=== PATIENT | female | born 1955 | race Caucasian/White ===

== ENCOUNTER 2018-10-02 10:28 | Emergency (ER) | payer OTHER ==
[2018-10-02] MEDS ORDERED: MORPHINE 2 MG/ML SYR ONE (12:54)
[2018-10-02] MEDS ORDERED: ONDANSETRON 4 MG/2 ML VIAL ONE (12:55)
[2018-10-02] MEDS ORDERED: NA CHLORIDE 0.9% 500 ML ONE (12:55)
[2018-10-02 13:07] LABS: Absolute Lymphocytes (CBC) 2.4 K/uL (0.7-4.9); Absolute Monocytes 0.7 K/uL (0.1-1.3); Absolute Neutrophil 3.5 K/uL (1.8-8.0); Basophils % 0.6 % (0-1.3); Eosinophils % 1.2 % (0-4.4); Hematocrit 41.4 % (36.0-45.0); Lymphocytes % 35.6 % (15.3-44.8); Monocytes % 10.1 % (3.3-12.3); RBC Red Blood Cell Count 4.75 M/uL (3.86-4.86)
[2018-10-02 13:19] LABS: ALT/SGPT 31 U/L (12-78); AST/SGOT 17 U/L (15-37); Albumin 4.2 g/dL (3.4-5.0); Alkaline Phosphatase 93 U/L (45-117); BUN Blood Urea Nitrogen 13 mg/dL (7-18); Bicarbonate 27 mmol/L (21-32); Bilirubin Direct < 0.1 mg/dL (0-0.2); Bilirubin Total 0.3 mg/dL (0.2-1.0); Glucose Level 89 mg/dL (74-106); Lipase 156 U/L (73-393); Potassium 3.9 mmol/L (3.5-5.1); Protein, Total 7.9 g/dL (6.4-8.2); Sodium Level 141 mmol/L (136-145)
--- NOTE | 2018-10-02 14:12 | RAD REPORT ---
EXAM DESCRIPTION: CT - Abdomen Pelvis W Contrast - 10/02/2018 1:54 pm CLINICAL HISTORY: Abdominal pain/right lower quadrant pain COMPARISON: none. TECHNIQUE: Computed axial tomography of the abdomen pelvis was obtained. 100 cc Isovue-300 was admin istered intravenously. Oral contrast was not requested which limits evaluation of bowel. All CT scans are performed using dose optimization technique as appropriate and may include automated exposure control or mA/KV adjustment according to patient size. FINDINGS: The liver, spleen, pancreas, adrenal right kidney appear unremarkable. 25 millimeter left renal cyst There is no evidence of diverticulitis. The appendix is normal. An adnexal mass is not seen IMPRESSION: No acute abnormality is displayed.
--- NOTE | 2018-10-02 14:34 | EDPHYS ---
Physician Documentation [facility] Name: Cele Mcfarlane Age: 63 yrs Sex: Female : 1955 Arrival Date: 10/02/2018 Time: 10:31 Bed 13 Private MD: Slime Decker K ED Physician Sonido Delgado HPI: 10/02 12:40 This 63 yrs old Female presents to ER via Ambulatory with complaints of kdr Abdominal Pain. 12:40 The patient presents with abdominal pain right lower quadrant, abdominal distention kdr that is diffuse. Onset: The symptoms/episode began/occurred gradually, 3 day(s) ago. The symptoms do not radiate. Associated signs and symptoms: Pertinent positives: diarrhea, nausea, Pertinent negatives: anorexia, blood in stools, chest pain, constipation, dysuria, fever, headache, hematuria, palpitations, shortness of breath, vaginal discharge, vomiting, vomiting blood. The symptoms are described as achy, crampy, dull, steady. Modifying factors: The symptoms are alleviated by nothing, the symptoms are aggravated by movement. Severity of pain: At its worst the pain was moderate in the emergency department the pain is unchanged. The patient has not experienced similar symptoms in the past. The patient has not recently seen a physician. Historical: - Allergies: 10:37 Sulfa (Sulfonamide Antibiotics); sv - PMHx: 10:37 None; sv - PSHx: 10:37 ; sv - Immunization history:: Flu vaccine is up to date. - Social history:: Smoking status: Patient/guardian denies using tobacco. - Ebola Screening: : No symptoms or risks identified at this time. ROS: 12:40 Constitutional: Negative for fever, chills, and weight loss, Eyes: Negative for injury, kdr pain, redness, and discharge, ENT: Negative for injury, pain, and discharge, Neck: Negative for injury, pain, and swelling, Cardiovascular: Negative for chest pain, palpitations, and edema, Respiratory: Negative for shortness of breath, cough, wheezing, and pleuritic chest pain, Back: Negative for injury and pain, : Negative for injury, bleeding, discharge, and swelling, MS/Extremity: Negative for injury and deformity, Skin: Negative for injury, rash, and discoloration, Neuro: Negative for headache, weakness, numbness, tingling, and seizure activity. Psych: Negative for depression, anxiety, suicide ideation, homicidal ideation, and hallucinations, Allergy/Immunology: Negative for hives, rash, and allergies, Endocrine: Negative for neck swelling, polydipsia, polyuria, polyphagia, and marked weight changes, Hematologic/Lymphatic: Negative for swollen nodes, abnormal bleeding, and unusual bruising. 12:40 Abdomen/GI: Positive for abdominal pain, nausea, diarrhea, abdominal distension, Negative for constipation, abdominal cramps, anorexia, dysphagia, hematemesis, black/tarry stool, rectal pain, rectal bleeding, bowel incontinence. Exam: 12:40 Constitutional: This is a well developed, well nourished patient who is awake, alert, kdr and in no acute distress. Head/Face: Normocephalic, atraumatic. Eyes: Pupils equal round and reactive to light, extra-ocular motions intact. Lids and lashes normal. Conjunctiva and sclera are non-icteric and not injected. Cornea within normal limits. Periorbital areas with no swelling, redness, or edema. Neck: Trachea midline, no thyromegaly or masses palpated, and no cervical lymphadenopathy. Supple, full range of motion without nuchal rigidity, or vertebral point tenderness. No Meningismus. Chest/axilla: Normal chest wall appearance and motion. Nontender with no deformity. No lesions are appreciated. Cardiovascular: Regular rate and rhythm with a normal S1 and S2. No gallops, murmurs, or rubs. Normal PMI, no JVD. No pulse deficits. Respiratory: Lungs have equal breath sounds bilaterally, clear to auscultation and percussion. No rales, rhonchi or wheezes noted. No increased work of breathing, no retractions or nasal flaring. Back: No spinal tenderness. No costovertebral tenderness. Full range of motion. Skin: Warm, dry with normal turgor. Normal color with no rashes, no lesions, and no evidence of cellulitis. MS/ Extremity: Pulses equal, no cyanosis. Neurovascular intact. Full, normal range of motion. Neuro: Awake and alert, GCS 15, oriented to person, place, time, and situation. Cranial nerves II-XII grossly intact. Motor strength 5/5 in all extremities. Sensory grossly intact. Cerebellar exam normal. Normal gait. Psych: Awake, alert, with orientation to person, place and time. Behavior, mood, and affect are within normal limits. 12:40 Abdomen/GI: Inspection: distension, Bowel sounds: active, all quadrants, diminished, Palpation: soft, mild abdominal tenderness, in the right lower quadrant. Vital Signs: 10:37 BP 129 / 81; Pulse 84; Resp 16; Temp 98.3; Pulse Ox 99% ; Weight 60.33 kg; Height 5 ft. sv 2 in. (157.48 cm); Pain 4/10; 12:56 BP 144 / 77; Pulse 69; Resp 16 S; Pulse Ox 99% on R/A; Pain 4/10; jl7 14:30 BP 134 / 70; Pulse 83; Resp 16 S; Pulse Ox 98% on R/A; Pain 6/10; jl7 14:53 Pain 2/10; jl7 10:37 Body Mass Index 24.33 (60.33 kg, 157.48 cm) sv MDM: 12:40 Data reviewed: vital signs, nurses notes, lab test result(s), radiologic studies. kdr Counseling: I had a detailed discussion with the patient and/or guardian regarding: the historical points, exam findings, and any diagnostic results supporting the discharge/admit diagnosis, lab results, radiology results. 14:33 Patient medically screened. kdr 14:38 ED course: The patient is feeling much better. [facility] 10/02 12:30 Order name: Basic Metabolic Panel; Complete Time: 13:21 kdr 10/02 12:30 Order name: CBC with Diff; Complete Time: 13:18 [facility] 10/02 12:30 Order name: Creatinine for Radiology; Complete Time: 13:18 [facility] 10/02 12:30 Order name: Hepatic Function; Complete Time: 13:21 kdr 10/02 12:30 Order name: Lipase; Complete Time: 13:21 kdr 10/02 12:39 Order name: CT Abd/Pelvis - W/Contrast; Complete Time: 14:22 kdr 10/02 12:30 Order name: IV Saline Lock; Complete Time: 12:55 kdr 10/02 12:30 Order name: Labs collected and sent; Complete Time: 12:55 kdr Administered Medications: 12:55 Drug: NS 0.9% 500 ml Route: IV; Rate: bolus; Site: left antecubital; [facility] 13:30 Follow up: Response: No adverse reaction; IV Status: Completed infusion jl7 14:30 Drug: Zofran 4 mg Route: IVP; Site: left antecubital; jl7 14:53 Follow up: Response: No adverse reaction jl7 14:30 Drug: morphine 2 mg Route: IVP; Site: left antecubital; jl7 14:53 Follow up: Pain 2/10 Adult; Response: No adverse reaction; Pain is decreased jl7 Disposition: 10/02/18 14:33 Discharged to Home. Impression: Unspecified abdominal pain, Abdominal and pelvic pain. - Condition is Stable. - Discharge Instructions: Abdominal Pain, Adult, [id number]. - Prescriptions for Tramadol 50 mg Oral Tablet - take 1 tablet by ORAL route every 8 hours as needed; 12 tablet. Bentyl 20 mg Oral Tablet - take 1 tablet by ORAL route every 6 hours As needed; 20 tablet. - Medication Reconciliation Form, Thank You Letter, Prescription Opioid Use form. - Follow up: Slime Decker MD; When: 2 - 3 days; Reason: If symptoms return, Further diagnostic work-up, Recheck today's complaints, Continuance of care, Re-evaluation by your physician. - Problem is new. - Symptoms have improved. Signatures: Dispatcher [employer] Caryl Min RN RN Sonido Delgado MD MD [facility] Flory Daniel RN RN jl7 Corrections: (The following items were deleted from the chart) 14:53 14:33 10/02/2018 14:33 Discharged to Home. Impression: Unspecified abdominal pain; jl7 Abdominal and pelvic pain. Condition is Stable. Forms are Medication Reconciliation Form, Thank You Letter, Antibiotic Education, Prescription Opioid Use. Follow up: lSime Decker; When: 2 - 3 days; Reason: If symptoms return, Further diagnostic work-up, Recheck today's complaints, Continuance of care, Re-evaluation by your physician. Problem is new. Symptoms have improved. kdr
--- NOTE | 2018-10-02 14:34 | ER ---
Nurse's Notes [facility] Name: Cele Mcfarlane Age: 63 yrs Sex: Female : 1955 Arrival Date: 10/02/2018 Time: 10:31 Bed 13 Private MD: Slime Decker K Diagnosis: Unspecified abdominal pain;Abdominal and pelvic pain Presentation: 10/02 10:36 Presenting complaint: Patient states: RLQ pain since Friday. c/o loose stools. sv Denies n/v/d/fever. Transition of care: patient was not received from another setting of care. Onset of symptoms was August 30, 2018. Care prior to arrival: None. 10:36 Method Of Arrival: Ambulatory sv 10:36 Acuity: RINKU 3 sv 10:40 Risk Assessment: Do you want to hurt yourself or someone else? Patient reports no jl7 desire to harm self or others. Initial Sepsis Screen: Does the patient meet any 2 criteria? No. Patient's initial sepsis screen is negative. Does the patient have a suspected source of infection? No. Patient's initial sepsis screen is negative. Triage Assessment: 10:39 General: Appears in no apparent distress. uncomfortable, slender, well developed, sv Behavior is calm, cooperative, appropriate for age. Pain: Complains of pain in right lower quadrant Pain currently is 4 out of 10 on a pain scale. Neuro: Level of Consciousness is awake, alert, obeys commands, Oriented to person, place, time, situation, Gait is steady. Respiratory: Respiratory effort is even, unlabored, Respiratory pattern is regular, symmetrical. GI: Patient currently denies diarrhea, nausea, vomiting. Derm: Skin is pink, warm \\T\\ dry. Historical: - Allergies: 10:37 Sulfa (Sulfonamide Antibiotics); sv - PMHx: 10:37 None; sv - PSHx: 10:37 ; sv - Immunization history:: Flu vaccine is up to date. - Social history:: Smoking status: Patient/guardian denies using tobacco. - Ebola Screening: : No symptoms or risks identified at this time. Screenin:56 Abuse screen: Denies threats or abuse. Denies injuries from another. Nutritional jl7 screening: No deficits noted. Tuberculosis screening: No symptoms or risk factors identified. Fall Risk IV access (20 points). Total Guerra Fall Scale indicates No Risk (0-24 pts). Assessment: 12:56 General: Appears in no apparent distress. uncomfortable, Behavior is calm, cooperative, jl7 appropriate for age. Pain: Complains of pain in right lower quadrant Pain currently is 4 out of 10 on a pain scale. Quality of pain is described as aching, sharp, Is intermittent. Neuro: Level of Consciousness is awake, alert, obeys commands, Oriented to person, place, time, situation. Cardiovascular: Patient's skin is warm and dry. Respiratory: Airway is patent Respiratory effort is even, unlabored, Respiratory pattern is regular, symmetrical. GI: Bowel sounds present X 4 quads. Abd is soft Abdomen is tender to palpation in right lower quadrant. : No signs and/or symptoms were reported regarding the genitourinary system. EENT: No signs and/or symptoms were reported regarding the EENT system. Derm: Skin is pink, warm \\T\\ dry. Musculoskeletal: No signs and/or symptoms reported regarding the musculoskeletal system. 12:56 Reassessment: Pt states "I don't think I need the pain medication right now. Let's just jl7 wait.". 14:00 Reassessment: Patient appears in no apparent distress at this time. No changes from jl7 previously documented assessment. Patient and/or family updated on plan of care and expected duration. Pain level reassessed. Patient is alert, oriented x 3, equal unlabored respirations, skin warm/dry/pink. 14:30 Reassessment: Pt reports increased pain, rated 6/10, requests pain medication at this jl7 time, medicated as ordered. 14:51 Reassessment: Patient states feeling better. jl7 Vital Signs: 10:37 BP 129 / 81; Pulse 84; Resp 16; Temp 98.3; Pulse Ox 99% ; Weight 60.33 kg; Height 5 ft. sv 2 in. (157.48 cm); Pain 4/10; 12:56 BP 144 / 77; Pulse 69; Resp 16 S; Pulse Ox 99% on R/A; Pain 4/10; jl7 14:30 BP 134 / 70; Pulse 83; Resp 16 S; Pulse Ox 98% on R/A; Pain 6/10; jl7 14:53 Pain 2/10; jl7 10:37 Body Mass Index 24.33 (60.33 kg, 157.48 cm) sv ED Course: 10:31 Patient arrived in ED. sb2 10:32 Slime Deckre MD is Private Physician. sb2 10:36 Triage completed. sv 10:39 Arm band placed on. sv 11:56 Sonido Delgado MD is Attending Physician. kdr 12:40 Flory Daniel RN is Primary Nurse. jl7 12:56 Patient has correct armband on for positive identification. Placed in gown. Bed in low jl7 position. Call light in reach. Side rails up X 1. Pulse ox on. NIBP on. Warm blanket given. 12:56 Initial lab(s) drawn, by me, sent to lab. Inserted saline lock: 20 gauge in left jl7 antecubital area, using aseptic technique. Blood collected. 13:54 CT Abd/Pelvis - W/Contrast In Process Unspecified. EDMS 13:54 CT completed. Patient tolerated procedure well. Patient moved to CT via wheelchair. vr Patient moved back from CT. 14:32 Slime Decker MD is Referral Physician. kdr 14:51 No provider procedures requiring assistance completed. IV discontinued, intact, jl7 bleeding controlled, No redness/swelling at site. Pressure dressing applied. Administered Medications: 12:55 Drug: NS 0.9% 500 ml Route: IV; Rate: bolus; Site: left antecubital; jl7 13:30 Follow up: Response: No adverse reaction; IV Status: Completed infusion jl7 14:30 Drug: Zofran 4 mg Route: IVP; Site: left antecubital; jl7 14:53 Follow up: Response: No adverse reaction jl7 14:30 Drug: morphine 2 mg Route: IVP; Site: left antecubital; jl7 14:53 Follow up: Pain 2/10 Adult; Response: No adverse reaction; Pain is decreased jl7 Outcome: 14:33 Discharge ordered by . kdr 14:51 Discharged to home ambulatory, with family. jl7 14:51 Condition: stable 14:51 Discharge instructions given to patient, family, Instructed on discharge instructions, follow up and referral plans. medication usage, Demonstrated understanding of instructions, follow-up care, medications, Prescriptions given X 2. 14:53 Patient left the ED. jl7 Signatures: [facility] Caryl Min, GEGE RN sv Sonido Delgado MD MD kdr Davis, Victoria vr Leal, Jahala, RN RN jl7 Marleny Ray 2
== END 2018-10-02 14:53 | disposition home or self-care (01) ==
LOC: ER 10:28
DX: R10.2 Pelvic and perineal pain (principal); Z88.2 Allergy status to sulfonamides
CPT/HCPCS: 36415; 74177; 80048; 80076; 83690; 85025; 96361; 96374; 96375; 99284; J2270; J2405; Q9967

== ENCOUNTER 2022-01-13 11:08 | Emergency (ER) | payer OTHER ==
--- OUTSIDE RECORDS SUMMARY | 2022-01-13 11:10 | XMS REPORT | Continuity of Care Document ---
:1955 Author Organization [facility] t Address [address] [place] [address] Dr. Delgado [address] [place] [id number] Care Team Providers Name Role Phone Unavailable Unavailable Unavailable Problems This patient has no known problems. Allergies, Adverse Reactions, Alerts This patient has no known allergies or adverse reactions. Medications This patient has no known medications. Procedures This patient has no known procedures. Results This patient has no known results.
[2022-01-13] MEDS ORDERED: MORPHINE 4 MG/ML SYR ONE ×2 (11:37→13:56)
[2022-01-13] MEDS ORDERED: NA CHLORIDE 0.9% 1,000 ML ONE (11:37)
[2022-01-13] MEDS ORDERED: ONDANSETRON 4 MG/2 ML VIAL ONE ×3 (11:37→13:56)
--- NOTE | 2022-01-13 11:50 | RAD REPORT ---
EXAM DESCRIPTION: RAD - Ankle Right 3 View - 01/13/2022 11:39 am CLINICAL HISTORY: Deformity, trip and fall down flight of stairs COMPARISON: No comparisons FINDINGS: Oblique fracture is present through the distal fibula at the tibiotalar joint line. Transv erse fracture of the medial malleolus is present. There is a 3 centimeter sized triangular-shaped pos terior malleolus fracture as well. Approximately is 2 centimeter lateral and posterior dislocation of the talus relative to the tibial plafond. Medial malleolus fracture fragment maintains positioning t o the dome of the talus. No pathologic bone process seen. Soft tissue swelling is present around the ankle joint. Degenerative change present in the subtalar joint space. A small plantar spur is present . No foreign body seen. IMPRESSION: Trimalleolar right ankle fracture dislocation as detailed.
[2022-01-13] MEDS ORDERED: CEFAZOLIN SODIUM 1 GM/VIAL ONE (12:46)
[2022-01-13] MEDS ORDERED: NA CHLORIDE 0.9% 100 ML IV ONE (12:46)
[2022-01-13] MEDS ORDERED: MIDAZOLAM HCL 2 MG/2 ML INJ ONE (13:55)
--- NOTE | 2022-01-13 14:39 | EDPHYS ---
Physician Documentation [facility] Name: Cele Mcfarlane Age: 66 yrs Sex: Female : 1955 Arrival Date: 01/13/2022 Time: 11:13 Bed 13 Private MD: ED Physician Iban Roach HPI: 01/13 11:22 This 66 yrs old Female presents to ER via EMS with complaints of Ankle Injury. pm1 11:22 The patient presents with pain, that is acute. The complaints affect the right ankle. pm1 11:22 Onset: The symptoms/episode began/occurred just prior to arrival. Context: resulted pm1 from a mis-step by the patient, patient was walking down the step at [place] and she was on the second step and twisted her right ankle , The patient is unable to bear weight. Associated signs and symptoms: Pertinent negatives: numbness, tingling. Modifying factors: The symptoms are alleviated by fentanyl given in route by EMS. Severity of symptoms: in the emergency department the symptoms have improved, mildly. The patient has not experienced similar symptoms in the past. The patient has not recently seen a physician. Historical: - Allergies: 11:18 Sulfa (Sulfonamide Antibiotics); ph - PMHx: 11:18 Anxiety; ph - Immunization history:: Adult Immunizations up to date. - Social history:: Smoking status: Patient denies any tobacco usage or history of. ROS: 11:22 Constitutional: Negative for fever, chills, and weight loss, Cardiovascular: Negative pm1 for chest pain, palpitations, and edema, Respiratory: Negative for shortness of breath, cough, wheezing, and pleuritic chest pain. 11:22 MS/extremity: Positive for deformity, pain, puncture, swelling, tenderness, of the right ankle. 11:22 Neuro: Negative for numbness, tingling. 11:22 All other systems are negative. Exam: 11:22 Constitutional: This is a well developed, well nourished patient who is awake, alert, pm1 and in no acute distress. Head/Face: Normocephalic, atraumatic. 11:22 Eyes: Exam is negative for acute changes, Conjunctiva: no acute changes, no injection. 11:22 ENT: Mouth: no acute changes, Lips: normal, moist, Oral mucosa: normal, pink and intact, moist. 11:22 Cardiovascular: Exam negative for acute changes, Rate: normal, Rhythm: regular, Pulses: no pulse deficits are appreciated, Pulses are 2+ in right dorsalis pedis artery. 11:22 Respiratory: Exam negative for acute changes, respiratory distress, shortness of breath. 11:22 Musculoskeletal/extremity: Extremities: grossly normal except: noted in the right ankle: deformity, swelling, tenderness, Medial hematoma with abrasion and puncture wound, the right foot Sensation intact. 11:22 Skin: Appearance: normal except for affected area, as noted on Musculoskeletal exam. 11:22 Neuro: Exam negative for acute changes, Orientation: is normal, Mentation: is normal, Motor: is normal, patient is able to move all toes on right foot, Sensation: no obvious gross deficits. Vital Signs: 11:16 BP 143 / 82; Pulse 79; Resp 18; Temp 97.8; Pulse Ox 100% on R/A; Weight 62.6 kg; Height ph 5 ft. 2 in. (157.48 cm); 13:30 BP 142 / 71; Pulse 89; Resp 22; Pulse Ox 98% on R/A; ph 14:00 BP 143 / 75; Pulse 92; Resp 24; Pulse Ox 100% on R/A; ph 14:15 BP 131 / 66; Pulse 79; Resp 18; Pulse Ox 99% on R/A; ph 14:30 BP 135 / 65; Pulse 78; Resp 16; Pulse Ox 98% on R/A; ph 15:00 BP 124 / 76; Pulse 87; Resp 18; Pulse Ox 99% on R/A; ph 15:30 BP 131 / 67; Pulse 78; Resp 16; Pulse Ox 100% on R/A; ph 16:15 BP 141 / 67; Pulse 82; Resp 16; Temp 97.6; Pulse Ox 99% on R/A; ph 11:16 Body Mass Index 25.24 (62.60 kg, 157.48 cm) ph Procedures: 14:06 Splinting: Splint applied to right ankle using Orthoglass splint, applied by myself. pm1 tech. Examined by me, post splint application: neurovascular intact, 2+ distal pulses palpable, brisk capillary refill noted, Patient tolerated well. Reduction: of the right ankle, using traction, Immobilized with Patient tolerated well. MDM: 11:19 Patient medically screened. pm1 14:06 Data reviewed: vital signs. Data interpreted: Pulse oximetry: on room air is 100 %. pm1 Interpretation: normal. 14:34 Counseling: I had a detailed discussion with the patient and/or guardian regarding: the pm1 historical points, exam findings, and any diagnostic results supporting the discharge/admit diagnosis, radiology results, the need to transfer to another facility, for higher level of care. 01/13 14:25 Order name: COVID-19 SARS RT PCR (Document "Date of Onset" if Symptomatic) pm1 01/13 11:20 Order name: Ankle Right 3 View XRAY; Complete Time: 11:51 pm1 01/13 14:31 Order name: Ankle Right 2 View; Complete Time: 15:17 EDMS 01/13 11:20 Order name: NPO; Complete Time: 11:23 pm1 01/13 12:04 Order name: Conscious Sedation; Complete Time: 15:03 pm1 01/13 12:29 Order name: Splint - Ankle: Orthoglass: Stirrup; Complete Time: 14:50 pm1 01/13 12:29 Order name: Posterior Orthoglass Ankle Splint; Complete Time: 14:50 pm1 Administered Medications: 11:42 Drug: Zofran (Ondansetron) 4 mg Route: IVP; Site: right antecubital; ph 14:51 Follow up: Response: No adverse reaction ss 11:42 Drug: NS 0.9% 1000 ml Route: IV; Rate: 125 ml/hr; Site: right antecubital; ph 16:24 Follow up: Response: No adverse reaction; IV Status: Infusion continued upon transfer ph 11:44 Drug: morphine 4 mg Route: IVP; Site: right antecubital; ph 14:51 Follow up: Response: No adverse reaction; Pain is decreased ss 13:09 Drug: Ancef (cefazolin) 1 grams Route: IVPB; Site: right antecubital; ph 13:40 Follow up: Response: No adverse reaction; IV Status: Completed infusion ph 13:50 Drug: Zofran (Ondansetron) 4 mg Route: IVP; Site: right antecubital; ph 16:23 Follow up: Response: No adverse reaction ph 13:58 Drug: Midazolam 2 mg Route: IVP; Site: right antecubital; ph 14:05 Follow up: Response: No adverse reaction; RASS: Light sedation (-2) ph 13:58 Drug: morphine 4 mg Route: IVP; Site: right antecubital; ph 14:05 Follow up: Response: No adverse reaction; RASS: Light sedation (-2) ph 15:45 Drug: Zofran (Ondansetron) 4 mg Route: IVP; Site: right antecubital; ph 16:23 Follow up: Response: No adverse reaction ph Disposition Summary: 01/13/22 14:38 Transfer Ordered Transfer Location: [facility] pm1 Reason: Higher level of care pm1 Condition: Stable pm1 Problem: new pm1 Symptoms: have improved pm1 Accepting Physician: (01/13/22 16:25) ph Diagnosis - Open right trimalleolar fracture with dislocation pm1 Forms: - Medication Reconciliation Form pm1 - SBAR form pm1 Signatures: Dispatcher [employer] EDMS Reba Rockwell, GEGE RN ph Dakotah Warner, CONDUCTOR YARD CONDUCTOR YARD pm1 Michelle Leon RN ss Corrections: (The following items were deleted from the chart) 14:31 14:06 Ankle Left 2 View+RAD.RAD.BRZ ordered. EDMS EDMS 16:25 14:38 MD pm1 ph
--- NOTE | 2022-01-13 14:39 | ER ---
Nurse's Notes [facility] Name: Cele Mcfarlane Age: 66 yrs Sex: Female : 1955 Arrival Date: 01/13/2022 Time: 11:13 Bed 13 Private MD: Diagnosis: Open right trimalleolar fracture with dislocation Presentation: 01/13 11:16 Chief complaint: EMS states: Pt was walking down stairs, on second to last step rolled ph R ankle and fell, obvious deformity to R ankle, also reports R hip pain, denies hitting head or LOC, does not take blood thinners, IV established to RAC, 25 mcg fentanyl given. Coronavirus screen: Vaccine status: Patient reports receiving the 2nd dose of the covid vaccine. Ebola Screen: No symptoms or risks identified at this time. Initial Sepsis Screen: Does the patient meet any 2 criteria? No. Patient's initial sepsis screen is negative. Does the patient have a suspected source of infection? No. Patient's initial sepsis screen is negative. Risk Assessment: Do you want to hurt yourself or someone else? Patient reports no desire to harm self or others. Onset of symptoms was January 13, 2022. 11:16 Method Of Arrival: EMS: [facility] 11:16 Acuity: RINKU 4 ph Triage Assessment: 11:19 General: Appears in no apparent distress. uncomfortable, well groomed, Behavior is ph cooperative, appropriate for age, crying. Pain: Complains of pain in right hip and right ankle. Neuro: Level of Consciousness is awake, alert, obeys commands, Oriented to person, place, time, situation. Cardiovascular: Capillary refill < 3 seconds in bilateral fingers Patient's skin is warm and dry. Respiratory: Airway is patent Respiratory effort is even, unlabored, Respiratory pattern is regular, symmetrical. GI: No signs and/or symptoms were reported involving the gastrointestinal system. Derm: Skin is healthy with good turgor, Skin is pink, warm \T\ dry. Musculoskeletal: Circulation, motion, and sensation intact. Swelling present in right ankle. Injury Description: Abrasion sustained to right wrist. Historical: - Allergies: 11:18 Sulfa (Sulfonamide Antibiotics); ph - PMHx: 11:18 Anxiety; ph - Immunization history:: Adult Immunizations up to date. - Social history:: Smoking status: Patient denies any tobacco usage or history of. Screenin:56 Abuse screen: Denies threats or abuse. Denies injuries from another. Nutritional ph screening: No deficits noted. Tuberculosis screening: No symptoms or risk factors identified. Fall Risk None identified. Assessment: 11:57 Reassessment: ERP at bedside to speak w/ pt about xray results. General: SEE TRIAGE ph ASSESSMENT. 14:00 Reassessment: Patient appears in no apparent distress at this time. Patient and/or ph family updated on plan of care and expected duration. Pain level reassessed. Patient is alert, oriented x 3, equal unlabored respirations, skin warm/dry/pink. Dakotah BEEBE and Dr Roach at bedside for conscious sedation and reduction of R ankle. 14:30 Reassessment: Patient appears in no apparent distress at this time. Patient and/or ph family updated on plan of care and expected duration. Pain level reassessed. Pt awake but drowsy, reports that pain has improved after splinting of R ankle, VSS. 15:00 Reassessment: Patient appears in no apparent distress at this time. No changes from previously documented assessment. Patient and/or family updated on plan of care and expected duration. Pain level reassessed. Patient is alert, oriented x 3, equal unlabored respirations, skin warm/dry/pink. 15:20 Reassessment: Report called to Gabby DE GUZMAN at [facility]. 16:09 Reassessment: Patient appears in no apparent distress at this time. Patient and/or ph family updated on plan of care and expected duration. Pain level reassessed. Patient is alert, oriented x 3, equal unlabored respirations, skin warm/dry/pink. [facility] at bedside for transfer. Vital Signs: 11:16 BP 143 / 82; Pulse 79; Resp 18; Temp 97.8; Pulse Ox 100% on R/A; Weight 62.6 kg; Height ph 5 ft. 2 in. (157.48 cm); 13:30 BP 142 / 71; Pulse 89; Resp 22; Pulse Ox 98% on R/A; ph 14:00 BP 143 / 75; Pulse 92; Resp 24; Pulse Ox 100% on R/A; ph 14:15 BP 131 / 66; Pulse 79; Resp 18; Pulse Ox 99% on R/A; ph 14:30 BP 135 / 65; Pulse 78; Resp 16; Pulse Ox 98% on R/A; ph 15:00 BP 124 / 76; Pulse 87; Resp 18; Pulse Ox 99% on R/A; ph 15:30 BP 131 / 67; Pulse 78; Resp 16; Pulse Ox 100% on R/A; ph 16:15 BP 141 / 67; Pulse 82; Resp 16; Temp 97.6; Pulse Ox 99% on R/A; ph 11:16 Body Mass Index 25.24 (62.60 kg, 157.48 cm) ph ED Course: 11:13 Patient arrived in ED. em1 11:16 Dakotah Warner, ABIEL is PHCP. pm1 11:16 Iban Roach MD is Attending Physician. pm1 11:16 Reba Rockwell, RN is Primary Nurse. ph 11:18 Triage completed. ph 11:19 Arm band placed on Patient placed in an exam room, on a stretcher, on pulse oximetry. ph 11:30 Maintain EMS IV. Dressing intact. Good blood return noted. Site clean \T\ dry. Gauge \T\ ph site: 20 RAC. IV is patent, is intact, with fluids infusing freely, Flushed right antecubital with 5 ml normal saline. 11:41 Ankle Right 3 View XRAY In Process Unspecified. EDMS 11:56 Patient has correct armband on for positive identification. Bed in low position. Call light in reach. Side rails up X 1. Pulse ox on. NIBP on. Door closed. Noise minimized. Warm blanket given. 13:45 Consent for conscious sedation explained by staff, explained by physician, signed by patient. 14:00 Assist provider with fracture care of right ankle Fracture is small open area to inner ankle, no bleeding. Obvious deformity is noted. Circulation, motor and sensation is intact. Set up for procedure. Performed by Iban Roach MD Reduced with physical manipulation. Immobilized with OCL splint, Post immobilization, circulation, motor and sensation remain intact. Patient tolerated well. 14:10 Orthoglass splint: Posterior short lleg splint applied on right leg. stirrup splint ph applied on right leg. Applied post reduction by a physician. 14:21 transfer initiated with [facility]. em1 14:28 Administrative approval given by Chano Valente with [facility] transfer center em1 to transfer pt to Dr. Davida Vargas in the ED. 15:01 Ankle Right 2 View In Process Unspecified. EDMS 16:15 Patient transferred, IV remains in place. ph Administered Medications: 11:42 Drug: Zofran (Ondansetron) 4 mg Route: IVP; Site: right antecubital; ph 14:51 Follow up: Response: No adverse reaction ss 11:42 Drug: NS 0.9% 1000 ml Route: IV; Rate: 125 ml/hr; Site: right antecubital; ph 16:24 Follow up: Response: No adverse reaction; IV Status: Infusion continued upon transfer ph 11:44 Drug: morphine 4 mg Route: IVP; Site: right antecubital; ph 14:51 Follow up: Response: No adverse reaction; Pain is decreased ss 13:09 Drug: Ancef (cefazolin) 1 grams Route: IVPB; Site: right antecubital; ph 13:40 Follow up: Response: No adverse reaction; IV Status: Completed infusion ph 13:50 Drug: Zofran (Ondansetron) 4 mg Route: IVP; Site: right antecubital; ph 16:23 Follow up: Response: No adverse reaction ph 13:58 Drug: Midazolam 2 mg Route: IVP; Site: right antecubital; ph 14:05 Follow up: Response: No adverse reaction; RASS: Light sedation (-2) ph 13:58 Drug: morphine 4 mg Route: IVP; Site: right antecubital; ph 14:05 Follow up: Response: No adverse reaction; RASS: Light sedation (-2) ph 15:45 Drug: Zofran (Ondansetron) 4 mg Route: IVP; Site: right antecubital; ph 16:23 Follow up: Response: No adverse reaction ph Medication: 11:56 VIS not applicable for this client. ph Outcome: 14:38 ER care complete, transfer ordered by . pm1 16:24 Transferred by ground EMS [place]. to [facility], Transfer form ph completed. X-rays sent w/ patient. 16:24 Condition: good 16:24 Instructed on the need for transfer. 16:25 Patient left the ED. ph Signatures: Dispatcher [employer] Amando Johnson em1 Michelle Leon RN RN Reba Wallace RN RN ph Dakotah Warner, CONTACT CENTER ANALYST CONTACT CENTER ANALYST pm1
--- NOTE | 2022-01-13 15:08 | RAD REPORT ---
EXAM DESCRIPTION: RAD - Ankle Right 2 View - 01/13/2022 2:59 pm CLINICAL HISTORY: post reduction Pain and swelling COMPARISON: Ankle Right 3 View dated 01/13/2022 FINDINGS: Previously noted trimalleolar fracture the ankle has been moderately reduced and placed wi thin a splint. Bone detail is obscured. Large plantar calcaneal spur.
[2022-01-13 16:44] VITALS: BP 141/67; TEMP 97.6; O2SAT 99
== END 2022-01-13 16:25 | disposition short-term general hospital (02) ==
LOC: ER 11:08
PROC: 2W3QX1Z Immobilization of Right Lower Leg using Splint (ICD-10-PCS; principal; 2022-01-13)
DX: S82.851B Displaced trimalleolar fracture of right lower leg, initial encounter for open fracture type I or II (principal); W10.9XXA Fall (on) (from) unspecified stairs and steps, initial encounter; Y93.9 Activity, unspecified; Y92.9 Unspecified place or not applicable; Z88.2 Allergy status to sulfonamides; F41.9 Anxiety disorder, unspecified; Z20.822 Contact with and (suspected) exposure to COVID-19
CPT/HCPCS: 96365; 96361; 73610; 73600; 96375; 99285; 29515; U0003; J2250; J7030; J2405 ×3; J0690

== ENCOUNTER 2022-01-21 22:23 | Observation (INO) | payer OTHER ==
--- OUTSIDE RECORDS SUMMARY | 2022-01-21 22:28 | XMS REPORT | Continuity of Care Document ---
:1955 Author Organization [facility] t Address [address] [place] [address] Care Team Providers Name Role Phone JIGNA Attending Clinician Unavailable SITA Attending Clinician Unavailable SITA Admitting Clinician Unavailable Payers Payer Name Policy Type Policy Number Effective Date Expiration Date S ource [employer] CHO[employer] POS [id number] 2002 00:00:00 II Problems This patient has no known problems. Allergies, Adverse Reactions, Alerts This patient has no known allergies or adverse reactions. Medications This patient has no known medications. Procedures This patient has no known procedures. Encounters Start End Encounter Admission Attending Care Care Encounter Source Date/Time Date/Time Type Type Clinicians Facility Department ID 2022-01-17 Outpatient JIGNA [facility] [id number] [place] 15:45:01 KELIN [id number] [facility] 2022-01-16 2022-01-16 Outpatient Karen BUCKNER [facility] [id number] [facility] 13:14:00 18:46:00 SERGIO Results This patient has no known results.
[2022-01-22] MEDS ORDERED: ONDANSETRON 4 MG/2 ML VIAL ONE ×3 (01:34→13:39)
[2022-01-22 01:46] LABS: Absolute Lymphocytes (CBC) 2.5 K/uL (0.7-4.9); Hematocrit 37.1 % (36.0-45.0); Lymphocytes % 23.9 % (15.3-44.8); RBC Red Blood Cell Count 4.28 M/uL (3.86-4.86)
[2022-01-22 01:52] LABS: Protime INR 1.04
[2022-01-22 02:09] LABS: Albumin 3.5 g/dL (3.4-5.0); Bilirubin Direct 0.1 mg/dL (0-0.2); Bilirubin Total 0.4 mg/dL (0.2-1.0); Potassium 3.6 mmol/L (3.5-5.1); Protein, Total 7.8 g/dL (6.4-8.2); Troponin High Sensitivity 6.6 pg/mL (<58.9)
[2022-01-22 02:34] LABS: Urine Blood 1+ (Negative); Urine Glucose Negative (Negative); Urine Protein Negative (Negative); Urine Specific Gravity 1.025 (1.005-1.030)
[2022-01-22] MEDS ORDERED: CEFTRIAXONE 1000 MG/VIAL ONE (02:57)
[2022-01-22] MEDS ORDERED: NA CHLORIDE 0.9% 50 ML ONE (02:57)
[2022-01-22] MEDS ORDERED: PROMETHAZINE INJ 25 MG/ML AMP ONE ×2 (02:57→04:52)
--- NOTE | 2022-01-22 04:37 | EDPHYS ---
Physician Documentation [facility] Name: Cele Mcfarlane Age: 66 yrs Sex: Female : 1955 Arrival Date: 01/21/2022 Time: 22:29 Bed 19 Private MD: ED Physician Brandon Floyd HPI: 01/22 00:50 This 66 yrs old Female presents to ER via EMS with complaints of General Weakness. mh7 00:50 The patient presents to the emergency department with nausea, that is moderate, mh7 vomiting, that is intermittent, described as clear fluid, diarrhea, that is intermittent. Onset: The symptoms/episode began/occurred yesterday. Possible causes: medication. The symptoms are aggravated by nothing. The symptoms are alleviated by nothing. Associated signs and symptoms: Pertinent positives: generalized weakness/fatigue, Pertinent negatives: abdominal pain, anorexia, belching, constipation, dysuria, fever, flatulence, GI bleeding, hematuria, vaginal discharge. Severity of symptoms: At their worst the symptoms were moderate last night, in the emergency department the symptoms have improved moderately. Historical: - Allergies: 01/21 23:17 Sulfa (Sulfonamide Antibiotics); ll3 - PMHx: 23:17 Anxiety; ll3 - Immunization history:: Client reports receiving the 2nd dose of the Covid vaccine. - Social history:: Smoking status: Patient denies any tobacco usage or history of. ROS: 01/22 00:50 Constitutional: Negative for fever, chills, and weight loss, Eyes: Negative for injury, mh7 pain, redness, and discharge, ENT: Negative for injury, pain, and discharge, Neck: Negative for injury, pain, and swelling, Cardiovascular: Negative for chest pain, palpitations, and edema, Respiratory: Negative for shortness of breath, cough, wheezing, and pleuritic chest pain, Back: Negative for injury and pain, : Negative for injury, bleeding, discharge, and swelling, Skin: Negative for injury, rash, and discoloration, Psych: Negative for depression, anxiety, suicide ideation, homicidal ideation, and hallucinations, Allergy/Immunology: Negative for hives, rash, and allergies, Endocrine: Negative for neck swelling, polydipsia, polyuria, polyphagia, and marked weight changes, Hematologic/Lymphatic: Negative for swollen nodes, abnormal bleeding, and unusual bruising. Exam: 00:50 Head/Face: Normocephalic, atraumatic. Eyes: Pupils equal round and reactive to light, mh7 extra-ocular motions intact. Lids and lashes normal. Conjunctiva and sclera are non-icteric and not injected. Cornea within normal limits. Periorbital areas with no swelling, redness, or edema. Neck: Trachea midline, no thyromegaly or masses palpated, and no cervical lymphadenopathy. Supple, full range of motion without nuchal rigidity, or vertebral point tenderness. No Meningismus. Chest/axilla: Normal chest wall appearance and motion. Nontender with no deformity. No lesions are appreciated. Cardiovascular: Regular rate and rhythm with a normal S1 and S2. No gallops, murmurs, or rubs. Normal PMI, no JVD. No pulse deficits. Respiratory: Lungs have equal breath sounds bilaterally, clear to auscultation and percussion. No rales, rhonchi or wheezes noted. No increased work of breathing, no retractions or nasal flaring. Abdomen/GI: Soft, non-tender, with normal bowel sounds. No distension or tympany. No guarding or rebound. No evidence of tenderness throughout. Back: No spinal tenderness. No costovertebral tenderness. Full range of motion. Skin: Warm, dry with normal turgor. Normal color with no rashes, no lesions, and no evidence of cellulitis. 00:50 Psych: Awake, alert, with orientation to person, place and time. Behavior, mood, and affect are within normal limits. 00:50 Constitutional: The patient appears in no acute distress, alert, awake, anxious, uncomfortable. 00:50 Musculoskeletal/extremity: Extremities: noted in the right lower extremity: surgical hardware inplace. 00:50 Neuro: Orientation: is normal, Mentation: is normal, Memory: is normal, Cranial nerves: grossly normal, Cerebellar function: is grossly normal, Motor: is normal, Sensation: is normal, Gait: not tested. seizure activity, is not displayed by the patient, Abnormal movements: there are no abnormal movements. Vital Signs: 01/21 23:11 BP 150 / 73; Pulse 88; Resp 16; Temp 98.0(O); Pulse Ox 98% on R/A; Weight 62.6 kg (R); ll3 Height 5 ft. 2 in. (157.48 cm) (R); Pain 0/10; 01/22 01:16 BP 144 / 78; Pulse 87; Resp 16; Pulse Ox 100% on R/A; ll3 02:30 BP 151 / 75; Pulse 89; Resp 18; Pulse Ox 100% on R/A; ll3 03:47 BP 152 / 77; Pulse 90; Resp 16; Pulse Ox 97% on R/A; ll3 05:00 BP 133 / 77; Pulse 90; Resp 20; Pulse Ox 99% on R/A; ll3 06:31 BP 149 / 77; Pulse 88; Resp 18; Pulse Ox 98% on R/A; ll3 05/30 23:11 Body Mass Index 25.24 (62.60 kg, 157.48 cm) 3 MDM: 04:36 Patient medically screened. [facility] 04:57 Differential diagnosis: gastritis, viral gastroenteritis, gastroenteritis. Data [facility] reviewed: vital signs, nurses notes, old medical records, lab test result(s), cardiac enzymes, CBC, electrolytes, urinalysis, EKG, radiologic studies, CT scan, plain films. Data interpreted: Pulse oximetry: on room air is 97 %. Interpretation: normal. Counseling: I had a detailed discussion with the patient and/or guardian regarding: the historical points, exam findings, and any diagnostic results supporting the discharge/admit diagnosis, the presence of at least one elevated blood pressure reading (>120/80) during this emergency department visit, lab results, radiology results, the need for further work-up and treatment in the hospital. Response to treatment: the patient's symptoms have mildly improved after treatment. 01/22 01:01 Order name: Basic Metabolic Panel; Complete Time: 02:42 01/22 01:01 Order name: CBC with Diff; Complete Time: 02:42 01/22 01:01 Order name: LFT's; Complete Time: 02:42 01/22 01:01 Order name: Magnesium; Complete Time: 02:42 01/22 01:01 Order name: NT PRO-BNP; Complete Time: 02:42 01/22 01:01 Order name: PT-INR; Complete Time: 02:42 01/22 01:01 Order name: Troponin HS; Complete Time: 02:42 01/22 01:01 Order name: XRAY Chest (1 view) [facility] 01/22 02:34 Order name: Urine Dipstick-Ancillary; Complete Time: 02:42 EDMS 01/22 02:44 Order name: CT Abd/Pelvis - Without Contrast [facility] 01/22 02:45 Order name: Urine Culture [facility] 01/22 04:37 Order name: COVID-19 SARS RT PCR (Document "Date of Onset" if Symptomatic) [facility] 01/22 01:01 Order name: EKG; Complete Time: 01:02 [facility] 01/22 01:01 Order name: Cardiac monitoring; Complete Time: 02:29 [facility] 01/22 01:01 Order name: EKG - Nurse/Tech; Complete Time: 02:17 [facility] 01/22 01:01 Order name: IV Saline Lock; Complete Time: 01: [facility] 01/22 01:01 Order name: Labs collected and sent; Complete Time: 01:35 [facility] 01/22 01:01 Order name: O2 Per Protocol; Complete Time: 01: [facility] 01/22 01:01 Order name: O2 Sat Monitoring; Complete Time: 01: [facility] 01/22 01:01 Order name: Urine Dipstick-Ancillary (obtain specimen); Complete Time: 02:29 [facility] Administered Medications: 01:35 Drug: Zofran (Ondansetron) 4 mg Route: IVP; Site: right antecubital; ll3 02:17 Follow up: Response: No adverse reaction ll3 03:06 Drug: Phenergan (promethazine) 12.5 mg Route: IVP; Site: right antecubital; ll3 03:41 Follow up: Response: No adverse reaction ll3 03:41 Drug: Rocephin (cefTRIAXone) 1 grams Route: IV; Rate: per protocol; Site: right ll3 antecubital; 04:49 Follow up: Response: No adverse reaction; IV Status: Completed infusion; IV Intake: [id number] 04:50 Drug: Phenergan (promethazine) 12.5 mg Route: IVP; Site: right antecubital; ll3 06:01 Follow up: Response: No adverse reaction; Marked relief of symptoms ll3 06:28 Drug: Valium (diazepam) 2 mg Route: IVP; Site: right antecubital; ll3 06:54 Follow up: Response: No adverse reaction; Marked relief of symptoms ll3 Disposition Summary: 01/22/22 04:36 Hospitalization Ordered Hospitalization Status: Observation [facility] Provider: Iban Remy Condition: Stable [facility] Problem: new mh7 Symptoms: have improved mh7 Bed/Room Type: Standard [facility] Location: Telemetry/MedSurg (observation)(01/22/22 12:54) kj1 Room Assignment: [facility](01/22/22 12:54) kj1 Diagnosis - Nausea and vomiting, intractable mh7 - Diarrhea, unspecified 7 - UTI/ Urinary tract infection, site not specified [facility] Forms: - Medication Reconciliation Form mh7 - SBAR form 7 Signatures: Dispatcher [employer] EDLacey Bethea RN RN cg Jackson, Kandis kj1 Brandon Floyd MD MD Olena Joseph RN RN ll3 Skylar Phipps PA PA sb3 Corrections: (The following items were deleted from the chart) 05:03 04:36 Telemetry/MedSurg (observation) [facility] cg 05:03 04:36 mh7 cg 12:54 05:03 [facility] ER HOLD cg kj1 12:54 05:03 ERHOLD- cg kj1
--- NOTE | 2022-01-22 04:37 | ER ---
Nurse's Notes [facility] Name: Cele Mcfarlane Age: 66 yrs Sex: Female : 1955 Arrival Date: 01/21/2022 Time: 22:29 Bed 19 Private MD: Diagnosis: Nausea and vomiting, intractable;Diarrhea, unspecified;UTI/ Urinary tract infection, site not specified Presentation: 01/21 23:11 Chief complaint: EMS states: Toned out for Dizziness, lightheaded, and weakness, pt ll3 states she started to feel bad this afternoon then started to feel better then after dinner the symptoms from earlier came back. Coronavirus screen: Vaccine status: Patient reports receiving the 2nd dose of the covid vaccine. At this time, the client does not indicate any symptoms associated with coronavirus-19. Ebola Screen: No symptoms or risks identified at this time. Initial Sepsis Screen: Does the patient meet any 2 criteria? No. Patient's initial sepsis screen is negative. Does the patient have a suspected source of infection? No. Patient's initial sepsis screen is negative. Risk Assessment: Do you want to hurt yourself or someone else? Patient reports no desire to harm self or others. Onset of symptoms was January 21, 2022. Care prior to arrival: Medication(s) given: 800 ml normal saline IV initiated. 20 GA, in the right antecubital area, Glucose check: 124. Activity prior to arrival: Near syncopy. 23:11 Method Of Arrival: EMS: [facility] 23:11 Acuity: RINKU 3 ll3 Triage Assessment: 23:17 General: Appears uncomfortable, Behavior is calm, cooperative. Pain: Denies pain. ll3 Neuro: Level of Consciousness is awake, alert, obeys commands, Oriented to person, place, time, situation, Reports dizziness, weakness. Respiratory: Respiratory effort is even, unlabored, Respiratory pattern is regular, symmetrical. Derm: Skin is pink, warm \T\ dry. Musculoskeletal: Circulation, motion, and sensation intact. Reports Right fibula reduction last week. Historical: - Allergies: 23:17 Sulfa (Sulfonamide Antibiotics); ll3 - PMHx: 23:17 Anxiety; ll3 - Immunization history:: Client reports receiving the 2nd dose of the Covid vaccine. - Social history:: Smoking status: Patient denies any tobacco usage or history of. Screenin:19 Abuse screen: Denies threats or abuse. Nutritional screening: No deficits noted. ll3 Tuberculosis screening: No symptoms or risk factors identified. Fall Risk No fall in past 12 months (0 pts). No secondary diagnosis (0 pts). IV access (20 points). Ambulatory Aid- None/Bed Rest/Nurse Assist (0 pts). Gait- Normal/Bed Rest/Wheelchair (0 pts) Mental Status- Oriented to own ability (0 pts). Total Guerra Fall Scale indicates No Risk (0-24 pts). Assessment: 23:19 General: See triage assessment. ll3 01/22 00:30 Reassessment: No changes from previously documented assessment. Patient and/or family ll3 updated on plan of care and expected duration. Pain level reassessed. Patient is alert, oriented x 3, equal unlabored respirations, skin warm/dry/pink. 01:45 Reassessment: Pt c/o nausea, ERP notified, medicated as ordered. ll3 02:15 Reassessment: States zofran didn't help with nausea, ERP notified. ll3 03:10 Reassessment: Patient and/or family updated on plan of care and expected duration. Pain ll3 level reassessed. Patient is alert, oriented x 3, equal unlabored respirations, skin warm/dry/pink. Pt c/co nausea, actively throwing up, ERP notified, medicated as ordered. 04:30 Reassessment: No changes from previously documented assessment. Patient and/or family ll3 updated on plan of care and expected duration. Pain level reassessed. Patient is alert, oriented x 3, equal unlabored respirations, skin warm/dry/pink. 06:00 Reassessment: No changes from previously documented assessment. Patient and/or family ll3 updated on plan of care and expected duration. Pain level reassessed. Patient is alert, oriented x 3, equal unlabored respirations, skin warm/dry/pink. 06:55 Reassessment: Patient states feeling better. Patient states symptoms have improved. ll3 Vital Signs: 01/21 23:11 BP 150 / 73; Pulse 88; Resp 16; Temp 98.0(O); Pulse Ox 98% on R/A; Weight 62.6 kg (R); ll3 Height 5 ft. 2 in. (157.48 cm) (R); Pain 0/10; 01/22 01:16 BP 144 / 78; Pulse 87; Resp 16; Pulse Ox 100% on R/A; ll3 02:30 BP 151 / 75; Pulse 89; Resp 18; Pulse Ox 100% on R/A; ll3 03:47 BP 152 / 77; Pulse 90; Resp 16; Pulse Ox 97% on R/A; ll3 05:00 BP 133 / 77; Pulse 90; Resp 20; Pulse Ox 99% on R/A; ll3 06:31 BP 149 / 77; Pulse 88; Resp 18; Pulse Ox 98% on R/A; ll3 01/21 23:11 Body Mass Index 25.24 (62.60 kg, 157.48 cm) ll3 ED Course: 01/21 22:29 Patient arrived in ED. lp1 22:42 Brandon Floyd MD is Attending Physician. 7 23:00 No provider procedures requiring assistance completed. Maintain EMS IV. Dressing ll3 intact. Good blood return noted. Site clean \T\ dry. Gauge \T\ site: 20 RAC. 23:11 Olena Gutiérrez RN is Primary Nurse. ll3 23:17 Triage completed. ll3 23:17 Arm band placed on Patient placed in an exam room, on a stretcher, on pulse oximetry. ll3 23:20 Patient has correct armband on for positive identification. Bed in low position. Call 3 light in reach. Side rails up X 1. Adult w/ patient. 01/22 01:47 XRAY Chest (1 view) In Process Unspecified. EDMS 03:24 CT Abd/Pelvis - Without Contrast In Process Unspecified. EDMS 04:35 Iban Remy MD is Hospitalizing Provider. 7 06:54 Patient admitted, IV remains in place. ll3 Administered Medications: 01:35 Drug: Zofran (Ondansetron) 4 mg Route: IVP; Site: right antecubital; ll3 02:17 Follow up: Response: No adverse reaction ll3 03:06 Drug: Phenergan (promethazine) 12.5 mg Route: IVP; Site: right antecubital; ll3 03:41 Follow up: Response: No adverse reaction ll3 03:41 Drug: Rocephin (cefTRIAXone) 1 grams Route: IV; Rate: per protocol; Site: right ll3 antecubital; 04:49 Follow up: Response: No adverse reaction; IV Status: Completed infusion; IV Intake: 00umeh4 04:50 Drug: Phenergan (promethazine) 12.5 mg Route: IVP; Site: right antecubital; ll3 06:01 Follow up: Response: No adverse reaction; Marked relief of symptoms ll3 06:28 Drug: Valium (diazepam) 2 mg Route: IVP; Site: right antecubital; ll3 06:54 Follow up: Response: No adverse reaction; Marked relief of symptoms ll3 Medication: 01/21 23:20 VIS not applicable for this client. ll3 Intake: 01/22 04:49 IV: 50ml; Total: 50ml. ll3 Outcome: 04:36 Decision to Hospitalize by Provider. [facility] 06:54 Admitted to ER Hold. Please see [facility] for further documentation. ll3 06:54 Condition: stable 06:54 Instructed on the need for admit. 14:27 Patient left the ED. vg1 Signatures: Dispatcher [employer] EDMS Anusha Escobar RN RN lp1 Fern Hogue RN RN vg1 Brandon Floyd MD MD 7 Olena Gutiérrez RN RN ll3 Corrections: (The following items were deleted from the chart) 03:15 03:06 Rocephin (cefTRIAXone) 1 grams IV at per protocol in right antecubital ll3 ll3
[2022-01-22] MEDS ORDERED: METOCLOPRAMIDE 10 MG/2mL INJ ONE (04:48)
--- NOTE | 2022-01-22 06:13 | P.HP ---
Certification for Inpatient Patient admitted to: Observation With expected LOS: <2 Midnights Patient will require the following post-hospital care: None Practitioner: I am a practitioner with admitting privileges, knowledge of patient current condition, hospital course, and medical plan of care. Services: Services provided to patient in accordance with Admission requirements found in Title 42 Section 412.3 of the Code of Federal Regulations Patient History Date of Service: 01/22/22 Reason for admission: Intractable N/V History of Present Illness: Patient is a 66-year-old female who presented to the ED with complaints of nausea, vomiting, diarrhea, and near syncope. Patient was seen here about 1 week ago for a trimalleolar fracture and was transferred downtown. She had an external fixation and was discharged 4 days ago. This afternoon, she started feeling very nauseous. She does not think she ate anything abnormal or had any changes in her medication. CT abdomen pelvis negative. Chest x-ray negative. No leukocytosis. Labs only significant for slight elevation in liver enzymes. Nausea and vomiting remained after trials of Zofran and promethazine. ED provider wishes to admit patient for observation. Home medications list reviewed: Yes - Past Medical/Surgical History Diabetic: No -: Anxiety -: Trimalleolar fracture repair Psychosocial/ Personal History: Patient lives at home with her - Social History Smoking Status: Never smoker Alcohol use: No CD- Drugs: No Caffeine use: Yes Place of Residence: Home Review of Systems General: Weakness Gastrointestinal: Nausea, Vomiting Physical Examination - Physical Exam General: Alert, In no apparent distress HEENT: Atraumatic, PERRLA, Other (Dry mucous membranes), EOMI, Sclerae nonicteric Neck: Supple, 2+ carotid pulse no bruit, No LAD, Without JVD or thyroid abnormality Respiratory: Clear to auscultation bilaterally, Normal air movement Cardiovascular: No edema, Regular rate/rhythm, Normal S1 S2 Gastrointestinal: Hypoactive, Soft and benign, Non-distended, No tenderness Musculoskeletal: Cast in place Integumentary: No rashes Neurological: Normal speech, Sensation intact, Normal affect - Studies Laboratory Data (last 24 hrs) 01/22/22 01:31: PT 11.4, INR 1.04 01/22/22 01:31: WBC 10.3, Hgb 12.2, Hct 37.1, Plt Count 426 H 01/22/22 01:31: Sodium 140, Potassium 3.6, BUN 12, Creatinine 0.72, Glucose 115 H, Magnesium 2.0, Total Bilirubin 0.4, AST 84 H, ALT 126 H, Alkaline Phosphatase 247 H Assessment and Plan - Problems (Diagnosis) (1) Intractable nausea and vomiting Current Visit: Yes Status: Acute (2) Anxiety Current Visit: Yes Status: Acute (3) Elevated liver enzymes Current Visit: Yes Status: Acute (4) Diarrhea Current Visit: Yes Status: Acute - Plan -admit for observation -source of n/v unclear. could be s/t medications from recent external fixation -Patient states she has had some diarrhea, but does not seem like C. difficile. She states she was only on IV antibiotics when she was admitted but has not been taking oral at antibiotics at home. -Cont promethazine PRN nausea -IVF at 100 cc/hr -Clear liquid diet, advance as tolerated -Liver enzymes elevated, trend -Lovenox for VTE ppx -Full code Discharge Plan: Home Plan to discharge in: 24 Hours - Advance Directives Does patient have a Living Will: No Does patient have a Durable POA for Healthcare: No - Code Status/Comfort Care Code Status Assessed: Yes (Full) Critical Care: No Time Spent Managing Pts Care (In Minutes): 50
[2022-01-22] MEDS ORDERED: DIAZEPAM 10 MG/2 ML INJ SYRINGE ONE (06:32)
[2022-01-22] MEDS: NA CHLORIDE 0.9% 1,000 ML IV SCH ×2 (07:22→16:58)
[2022-01-22 07:25] VITALS: BMI 25.2
[2022-01-22] MEDS ORDERED: SODIUM CHLORIDE 0.9% 10ML INJ IV PRN (07:48)
[2022-01-22] MEDS ORDERED: PANTOPRAZOLE 40 MG INJ IVP ONE (07:48)
[2022-01-22] MEDS ORDERED: NA CHLORIDE 0.9% 1,000 ML ONE (08:00)
[2022-01-22] MEDS ORDERED: PANTOPRAZOLE 40 MG INJ ONE (08:02)
[2022-01-22] MEDS: ONDANSETRON 4 MG/2 ML VIAL IV PRN ×2 (08:15→13:30)
[2022-01-22] MEDS ORDERED: ENOXAPARIN 40 MG/0.4 ML SQ SCH (09:00)
[2022-01-22] MEDS ORDERED: ENOXAPARIN 40 MG/0.4 ML SQ ONE (09:37)
--- NOTE | 2022-01-22 10:41 | RAD REPORT ---
EXAM DESCRIPTION: CT - Abdomen Pelvis Wo Contrast - 01/22/2022 6:42 am CLINICAL HISTORY: The patient is 66 years old and is Female; Nausea/vomiting TECHNIQUE: Axial computed tomography images of the abdomen and pelvis without intravenous contrast. Sagittal and coronal reformatted images were created and reviewed. This CT exam was performed usi ng one or more of the following dose reduction techniques: automated exposure control, adjustment o f the mA and/or kV according to patient size, and/or use of iterative reconstruction technique. COMPARISON: No relevant prior studies available. FINDINGS: LUNG BASES: Unremarkable. No mass. No consolidation. ABDOMEN: LIVER: Homogeneous without focal mass. GALLBLADDER AND BILE DUCTS: Gallbladder is contracted. PANCREAS: Unremarkable. No ductal dilation. SPLEEN: Unremarkable. ADRENALS: Unremarkable. No mass. KIDNEYS AND URETERS: A left parapelvic renal cyst is present. No follow-up imaging is recommende d. There is no hydronephrosis or hydroureter of either kidney. No obstructing renal or ureteral calcu janis is seen. STOMACH AND BOWEL: Stomach is distended with food contents and air. The small bowel is normal in caliber. Stool is present throughout colon. There is no mucosal thickening or evidence of bowel obst ruction. PELVIS: APPENDIX: The appendix is normal in caliber without surrounding inflammation. BLADDER: The bladder is well distended. No stones. REPRODUCTIVE: Unremarkable as visualized. ABDOMEN and PELVIS: INTRAPERITONEAL SPACE: Unremarkable. No free air. No significant fluid collection. BONES/JOINTS: No acute fracture. SOFT TISSUES: The soft tissues are normal. VASCULATURE: Unremarkable. No abdominal aortic aneurysm. LYMPH NODES: Unremarkable. No enlarged lymph nodes. IMPRESSION: No acute findings on this noncontrasted CT of the abdomen and pelvis to explain the lucho ent's symptoms. Electronically signed by: Amy Sewell MD 01/22/2022 3:48 AM CDT Due to temporary technical issues with the PACS/Fluency reporting system, reports are being signed by the in house radiologist without review as a courtesy to ensure prompt reporting. The interpreting r adiologist is fully responsible for the content of the report.
--- NOTE | 2022-01-22 11:09 | RAD REPORT ---
EXAM DESCRIPTION: RAD - Chest Single View - 01/22/2022 1:45 am CLINICAL HISTORY: The patient is 66 years old and is Female; Dizziness TECHNIQUE: Frontal view of the chest. COMPARISON: No relevant prior studies available. FINDINGS: Lungs: Unremarkable. No consolidation. Pleural space: Unremarkable. No pneumothorax. Heart: Unremarkable. Mediastinum: Unremarkable. Bones/joints: Unremarkable. IMPRESSION: No acute findings in the chest. Electronically signed by: Luis Enrique Mckeon MD 01/22/2022 1:56 AM CDT Due to temporary technical issues with the PACS/Fluency reporting system, reports are being signed by the in house radiologist without review as a courtesy to ensure prompt reporting. The interpreting r adiologist is fully responsible for the content of the report.
[2022-01-22] MEDS ORDERED: LORazepam 2 MG/ML VIAL IV ONE (12:15)
--- NOTE | 2022-01-22 12:17 | EKG ---
Test Date: 2022-01-22 Test Time: 02:04:47 Sugar Cane Planter: ARIANA MEASUREMENT RESULTS: Intervals: Rate: 89 MN: 176 QRSD: 72 QT: 358 QTc: 435 Parkman: P: 68 MN: 176 QRS: 63 T: 56 INTERPRETIVE STATEMENTS: Normal sinus rhythm Nonspecific ST abnormality Abnormal ECG Compared to ECG 11/27/2001 13:11:00 ST (T wave) deviation now present Electronically Signed On 01-22-22 12:16:29 CDT by Rowdy Delvalle
[2022-01-22] MEDS ORDERED: LORazepam 2 MG/ML VIAL ONE (12:24)
[2022-01-22 14:39] VITALS: O2SAT 98
[2022-01-22] MEDS: ACETAMINOPHEN 500 MG TAB PO PRN ×2 (17:05→22:25)
[2022-01-22] MEDS ORDERED: ZOLPIDEM TARTRATE 5 MG TABLET PO PRN (18:40)
[2022-01-22] MEDS ORDERED: OXYCODONE HCL 5 MG TAB PO SCH (19:00)
[2022-01-22] MEDS ORDERED: LORAZEPAM 0.5 MG TABLET PO SCH (19:00)
[2022-01-22] MEDS: clonazePAM 0.5 MG TAB PO SCH (20:26)
[2022-01-22] MEDS: ENOXAPARIN 30 MG/0.3 ML SQ SCH (20:26)
[2022-01-22] MEDS: GABAPENTIN 100 MG CAP PO SCH (20:26)
[2022-01-22] MEDS ORDERED: MIRTAZAPINE 15 MG TAB PO SCH (21:00)
[2022-01-23] MEDS: NA CHLORIDE 0.9% 1,000 ML IV SCH (03:37)
[2022-01-23] MEDS: ACETAMINOPHEN 500 MG TAB PO PRN (07:45)
[2022-01-23 08:43] VITALS: BP 125/69; TEMP 97.8
[2022-01-23] MEDS ORDERED: methocarbamoL 500 MG TAB PO SCH (09:00)
[2022-01-23] MEDS: clonazePAM 0.5 MG TAB PO SCH (09:25)
[2022-01-23] MEDS: GABAPENTIN 100 MG CAP PO SCH (09:25)
[2022-01-23] MEDS: ENOXAPARIN 30 MG/0.3 ML SQ SCH (09:25)
== END 2022-01-23 10:28 | disposition home or self-care (01) ==
LOC: ER 22:23 → ERHOLD 01-22 06:04 → 2ND 01-22 14:20
PROVIDERS: ADMIT Hospitalist; ATTEND Hospitalist
DX: R11.2 Nausea with vomiting, unspecified (principal); R19.7 Diarrhea, unspecified; F41.9 Anxiety disorder, unspecified; R55 Syncope and collapse; R74.8 Abnormal levels of other serum enzymes; R53.1 Weakness; Z98.890 Other specified postprocedural states; Z88.2 Allergy status to sulfonamides; Z20.822 Contact with and (suspected) exposure to COVID-19
CPT/HCPCS: 96365; 93005; 87088; 85025; 87086; 80048; 36415; 83735; 85610; 80076; 87077 ×2; 87186 ×2; 81003; 84484; 83880; 74176; 71045; 96375; 99285; U0003; J2550 ×2; C9113; J1650 ×3; J3360; J7030 ×3; J2405 ×3; G0378 ×3; J2765

== ENCOUNTER 2025-04-04 15:02 | Emergency (ER) | payer OTHER ==
[2025-04-04 16:05] LABS: Absolute Lymphocytes (CBC) 2.9 K/uL (0.7-4.9); Hematocrit 34.9 % (36.0-45.0); Hemoglobin 12.0 g/dL (12.0-15.0); MCH 29.0 pg (27.0-35.0); MCHC 34.2 g/dL (32.0-36.0); MCV 84.6 fL (80-100); MPV 6.9 fL (7.6-11.3); Nucleated RBC Absolute Count 0.0 (0-0); Nucleated Red Blood Cells % 0.0 % (0-0); RBC Red Blood Cell Count 4.13 M/uL (3.86-4.86); White Blood Count 8.80 thou/uL (4.3-10.9)
[2025-04-04 16:37] LABS: ALT/SGPT 34 U/L (13-56); AST/SGOT 22 U/L (15-37); Albumin 3.4 g/dL (3.4-5.0); Albumin/Globulin Ratio 1.1 (1.1-1.8); Alkaline Phosphatase 81 U/L (45-117); Anion Gap 8.6 mEq/L (5.0-15.0); BUN Blood Urea Nitrogen 16 mg/dL (7-18); Globulin 3.1 g/dL (2.3-3.5); Glucose Level 89 mg/dL (74-106); Magnesium 2.0 mg/dL (1.6-2.4); NT PRO-BNP 90 pg/mL (<125); Potassium 3.6 mEq/L (3.5-5.1); Thyroid Stimulating Hormone 2.800 uIU/mL (0.358-3.740); Troponin High Sensitivity 5.7 pg/mL (<58.9)
[2025-04-04 16:38] LABS: Bilirubin Indirect, Calculated 0.0 mg/dL (0.2-0.8)
--- NOTE | 2025-04-04 16:44 | RAD REPORT ---
EXAM: Chest Single View HISTORY: 69 years Female CHEST PAIN COMPARISON: 01/22/2022 FINDINGS: LUNGS/PLEURA: The lungs are clear. No pleural effusions or pneumothorax. No pulmonary edema. CARDIAC/MEDIASTINUM: The cardiac silhouette is within normal limits. UPPER ABDOMEN: No significant abnormality. BONES: No acute abnormality. LINES/TUBES/OTHER: N/A IMPRESSION: No evidence of acute cardiopulmonary disease.
[2025-04-04 16:55] LABS: PT Prothrombin Time 12.4 SECONDS (10-13.0); Protime INR 1.1
--- NOTE | 2025-04-04 17:11 | RAD REPORT ---
EXAMINATION: Head Brain Wo Cont CLINICAL INDICATION: Female, 69 years old.SYNCOPE TECHNIQUE: Axial CT images from the skull base to the vertex without intravenous contrast. Coronal an d sagittal reformatted images were created from the data set. One or more of the following dose reduction techniques were used: Automated exposure control, adjustment of the mA and/or kV according to patient size, and/or iterative reconstruction. Unless otherwise specified, incidental findings do not require dedicated imaging follow-up. [id number]. COMPARISON: No prior exams FINDINGS: INTRACRANIAL: No acute intracranial hemorrhage. No acute large vascular territory infarct. No hydroce phalus. No mass effect or midline shift. No significant white matter disease.Motion artifact VASCULATURE: No visualized abnormalities in the arteries or dural venous sinuses. SCALP/SKULL: No calvarial fracture identified. No acute soft tissue abnormality. SINUSES: The visualized paranasal sinuses are mostly clear. No significant mastoid fluid. IMPRESSION: No acute intracranial abnormality.
[2025-04-04] MEDS ORDERED: LORazepam 2 MG/ML VIAL ONE (17:59)
--- NOTE | 2025-04-04 19:31 | ER ---
Nurse's Notes [facility] Name: Cele Mcfarlane Age: 69 yrs Sex: Female : 1955 Arrival Date: 04/04/2025 Time: 15:02 Bed 26 Private MD: Diagnosis: Anxiety disorder, unspecified Presentation: 04/04 15:32 Chief complaint: EMS states: She was driving [place] the [place] started having a feeling ll1 of impending doom. pt stated " I cannot describe it but something is wrong." . Pt has received 400ml of NS and 4mg of Zofran via 20 in LAC. Coronavirus screen: At this time, the client does not indicate any symptoms associated with coronavirus-19. Ebola Screen: No symptoms or risks identified at this time. Initial Sepsis Screen: Does the patient meet any 2 criteria? No. Patient's initial sepsis screen is negative. Initial Sepsis Screen: Does the patient have a suspected source of infection? No. Patient's initial sepsis screen is negative. Risk Assessment: Do you want to hurt yourself or someone else? Patient reports no desire to harm self or others. Onset of symptoms was April 04, 2025. 15:32 Method Of Arrival: EMS: [facility] ll1 15:32 Acuity: RINKU 3 ll1 Historical: - Allergies: 15:19 Sulfa (Sulfonamide Antibiotics); ll1 - PMHx: 15:19 Anxiety; ll1 - Immunization history:: Adult Immunizations up to date. Screenin:43 [facility] ED Fall Risk Assessment (Adult) History of falling in the last 3 months, jb4 including since admission No falls in past 3 months (0 pts) Confusion or Disorientation No (0 pts) Intoxicated or Sedated No (0 pts) Impaired Gait No (0 pts) Mobility Assist Device Used No (0 pt) Altered Elimination No (0 pt) Score/Fall Risk Level 0 - 2 = Low Risk Oriented to surroundings, Maintained a safe environment. Abuse screen: Denies threats or abuse. Nutritional screening: No deficits noted. Tuberculosis screening: No symptoms or risk factors identified. Assessment: 16:11 General: Appears in no apparent distress. comfortable, Behavior is calm, cooperative, ll1 appropriate for age. Pain: Denies pain. Neuro: Level of Consciousness is awake, alert, obeys commands, Oriented to person, place, time, situation. Cardiovascular: Patient's skin is warm and dry. Respiratory: Airway is patent Respiratory effort is even, unlabored, Respiratory pattern is regular, symmetrical. Derm: Skin is intact, Skin is pink, warm \\T\\ dry. Musculoskeletal: Circulation, motion, and sensation intact. Range of motion: intact in all extremities. 17:00 Reassessment: Patient appears in no apparent distress at this time. Patient and/or jb4 family updated on plan of care and expected duration. Pain level reassessed. Patient is alert, oriented x 3, equal unlabored respirations, skin warm/dry/pink. 18:00 Reassessment: Patient appears in no apparent distress at this time. Patient and/or jb4 family updated on plan of care and expected duration. Pain level reassessed. Patient is alert, oriented x 3, equal unlabored respirations, skin warm/dry/pink. 18:56 Reassessment: Patient appears in no apparent distress at this time. Patient and/or jb4 family updated on plan of care and expected duration. Pain level reassessed. Patient is alert, oriented x 3, equal unlabored respirations, skin warm/dry/pink. Vital Signs: 15:32 BP 147 / 86; Pulse 84; Resp 16; Pulse Ox 100% on R/A; ll1 17:30 BP 156 / 87; Pulse 94; Resp 16; Pulse Ox 98% on R/A; jb4 18:45 BP 140 / 70; Pulse 82; Resp 16; Pulse Ox 98% on R/A; jb4 ED Course: 15:17 Patient arrived in ED. bd 15:19 Arm band placed on Patient placed in an exam room, on a stretcher. ll1 15:22 Skylar Phipps PA-C is PHCP. sb4 15:22 Boom Richardson MD is Attending Physician. sb4 15:35 Triage completed. ll1 15:59 XRAY Chest (1 view) In Process Unspecified. EDMS 16:54 Head Brain Wo Cont CT In Process Unspecified. EDMS 18:44 Sixto Sanders, GEGE is Primary Nurse. jb4 19:43 Patient has correct armband on for positive identification. Bed in low position. Call jb4 light in reach. Side rails up X 1. Provided Education on: discharge instructions. 19:43 No provider procedures requiring assistance completed. IV discontinued, intact, jb4 bleeding controlled, No redness/swelling at site. Pressure dressing applied. Administered Medications: 18:13 Drug: Ativan IVP 1 mg IVP once Route: IVP; Site: left antecubital; jb4 19:00 Follow up: Response: No adverse reaction; Marked relief of symptoms; Anxiety decreased jb4 Medication: 19:43 VIS not applicable for this client. jb4 Outcome: 19:31 Discharge ordered by . sb4 19:43 Discharged to home ambulatory, jb4 19:43 Condition: stable 19:43 Discharge instructions given to patient, Instructed on discharge instructions, follow up and referral plans. Demonstrated understanding of instructions, follow-up care, 19:47 Patient left the ED. jb4 Signatures: Dispatcher [employer] EDMS Cele Chen James RN RN jb4 Karena Ribera RN RN ll1 Skylar Phipps, PAMonik PABreC sb4
--- NOTE | 2025-04-04 19:31 | EDPHYS ---
Physician Documentation [facility] Name: Cele Mcfarlane Age: 69 yrs Sex: Female : 1955 Arrival Date: 04/04/2025 Time: 15:02 Bed 26 Private MD: ED Physician Boom Richardson HPI: 04/04 15:48 This 69 yrs old Female presents to ER via EMS with complaints of Doesn't Feel Right. 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 Cannot really describe any symptoms, but does not feel normal. Initially she was tachycardic and hypertensive for EMS, which she denies any history of hypertension but does take medications for anxiety. Vital signs and her symptoms have improved since arrival to ED but she still is not feeling completely right. Denies any chest pain, palpitations, nausea, dizziness. Historical: - Allergies: 15:19 Sulfa (Sulfonamide Antibiotics); ll1 - PMHx: 15:19 Anxiety; ll1 - Immunization history:: Adult Immunizations up to date. ROS: 15:48 Constitutional: Negative for fever, chills, and weight loss, sb4 15:48 All other systems are negative, Exam: 15:48 Head/Face: Normocephalic, atraumatic. Eyes: Extra-ocular motions intact. Periorbital sb4 areas with no swelling, redness, or edema. ENT: Mucous membranes moist. Cardiovascular: Regular rate and rhythm with a normal S1 and S2. Respiratory: No increased work of breathing, no retractions or nasal flaring. Abdomen/GI: Soft, non-tender, no distension. Skin: Warm, dry with normal turgor. Normal color with no rashes, no lesions, and no evidence of cellulitis. MS/ Extremity: Pulses equal, no cyanosis. Neurovascular intact. Full, normal range of motion. Neuro: Awake and alert, GCS 15, oriented to person, place, time, and situation. Motor strength 5/5 in all extremities. Sensory grossly intact. 15:48 Constitutional: The patient appears alert, awake, anxious, Vital Signs: 15:32 BP 147 / 86; Pulse 84; Resp 16; Pulse Ox 100% on R/A; ll1 17:30 BP 156 / 87; Pulse 94; Resp 16; Pulse Ox 98% on R/A; jb4 18:45 BP 140 / 70; Pulse 82; Resp 16; Pulse Ox 98% on R/A; jb4 MDM: 15:22 Medical Screening Exam initiated sb4 19:30 Data reviewed: vital signs, nurses notes, EMS record, lab test result(s), EKG, sb4 radiologic studies, and as a result, I will discharge patient. Counseling: I had a detailed discussion with the patient and/or guardian regarding the historical points, exam findings, and any diagnostic results supporting the discharge/admit diagnosis, the presence of at least one elevated blood pressure reading (>120/80) during this emergency department visit, lab results, radiology results, the need for outpatient follow up, for definitive care, to return to the emergency department if symptoms worsen or persist or if there are any questions or concerns that arise at home. 04/05 08:05 Differential diagnosis: ACS, anxiety, thyroid dysfunction, dehydration, cardiac sb4 arrhythmia, electrolyte abnormality. Special discussion: I discussed with the patient/guardian in detail that at this point there is no indication for admission to the hospital. It is understood, however, that if the symptoms persist or worsen the patient needs to return immediately for re-evaluation. ED course: Symptoms resolved after anxiolytic. Workup has been unremarkable, troponin is negative x 2. Patient states she has been under a lot of stress. Will safely discharge home at this time. 04/04 15:29 Order name: Basic Metabolic Panel; Complete Time: 16:38 sb4 04/04 15:29 Order name: CBC with Diff; Complete Time: 16:43 sb4 04/04 15:29 Order name: LFT's; Complete Time: 16:38 sb4 04/04 15:29 Order name: Magnesium; Complete Time: 16:38 sb4 04/04 15:29 Order name: NT PRO-BNP; Complete Time: 16:38 sb4 04/04 15:29 Order name: PT-INR; Complete Time: 16:57 sb4 04/04 15:29 Order name: Troponin HS; Complete Time: 16:38 sb4 04/04 15:29 Order name: TSH; Complete Time: 16:38 sb4 04/04 18:02 Order name: Troponin High Sensitivity; Complete Time: 19:27 sb4 04/04 15:29 Order name: XRAY Chest (1 view); Complete Time: 16:48 sb4 04/04 16:36 Order name: Head Brain Wo Cont CT; Complete Time: 17:18 sb4 04/04 15:29 Order name: EKG; Complete Time: 15:29 sb4 04/04 15:29 Order name: Cardiac monitoring; Complete Time: 16:10 sb4 04/04 15:29 Order name: EKG - Nurse/Tech; Complete Time: 16:10 sb4 04/04 15:29 Order name: IV Saline Lock; Complete Time: 16:10 sb4 04/04 15:29 Order name: Labs collected and sent; Complete Time: 16:10 sb4 04/04 15:29 Order name: O2 Per Protocol; Complete Time: 15:53 sb4 04/04 15:29 Order name: O2 Sat Monitoring; Complete Time: 15:53 sb4 EC/11 16:06 Rate is 83 beats/min. Rhythm is regular, Normal Sinus Rhythm. MN interval is normal at sb4 172 msec. QRS interval is normal at 70 msec. QT interval is normal at 394 msec. No Q waves. T waves are Normal. Clinical impression: No evidence of ischemia. Interpreted by me. Reviewed by me. Administered Medications: 18:13 Drug: Ativan IVP 1 mg IVP once Route: IVP; Site: left antecubital; jb4 19:00 Follow up: Response: No adverse reaction; Marked relief of symptoms; Anxiety decreased jb4 Disposition Summary: 04/04/25 19:31 Discharge Ordered Notes: Location: Home sb4 Problem: new sb4 Symptoms: have improved sb4 Condition: Stable sb4 Diagnosis - Anxiety disorder, unspecified sb4 Followup: sb4 - With: Emergency Department - When: As needed - Reason: Trouble breathing, Worsening of condition Discharge Instructions: - Discharge Summary Sheet sb4 - Panic Attack, [id number] sb4 - Managing Anxiety, Adult sb4 Forms: - Patient Portal Instructions sb4 - Leadership Thank You Letter sb4 Addendum: 04/07/2025 14:33 Co-signature as Attending Physician, Boom Richardson MD I agree with the assessment and c gonzalez plan of care. Signatures: Dispatcher [employer] EDBoom Frazier MD MD cha Bryson, James, RN RN jb4 Karena Ribera RN RN ll1 Skylar Phipps, PA-C PA-C sb4
[2025-04-04 20:23] VITALS: O2SAT 98
[2025-04-04 20:24] VITALS: BP 140/70
== END 2025-04-04 19:47 | disposition home or self-care (01) ==
LOC: ER 15:02
DX: F41.9 Anxiety disorder, unspecified (principal)
CPT/HCPCS: 36415; 70450; 71045; 80048; 80076; 83735; 83880; 84443; 84484; 85025; 85610; 93005; 96374; 99284

== ENCOUNTER 2025-04-07 17:20 | Emergency (ER) | payer OTHER ==
[2025-04-07 17:40] LABS: Absolute Lymphocytes (CBC) 3.1 K/uL (0.7-4.9); Hematocrit 38.7 % (36.0-45.0); Hemoglobin 13.0 g/dL (12.0-15.0); MCH 28.4 pg (27.0-35.0); MCHC 33.5 g/dL (32.0-36.0); MCV 84.9 fL (80-100); MPV 7.2 fL (7.6-11.3); Nucleated RBC Absolute Count 0.0 (0-0); Nucleated Red Blood Cells % 0.1 % (0-0); RBC Red Blood Cell Count 4.56 M/uL (3.86-4.86); White Blood Count 9.80 thou/uL (4.3-10.9)
[2025-04-07 18:03] LABS: Anion Gap 10.2 mEq/L (5.0-15.0); BUN Blood Urea Nitrogen 10.0 mg/dL (7-18); Glucose Level 86.0 mg/dL (74-106); Potassium 3.2 mEq/L (3.5-5.1); Troponin High Sensitivity 4.8 pg/mL (<58.9)
[2025-04-07] MEDS ORDERED: LORazepam 2 MG/ML VIAL ONE (18:06)
--- NOTE | 2025-04-07 18:30 | ER ---
Nurse's Notes [facility] Name: Cele Mcfarlane Age: 69 yrs Sex: Female : 1955 Arrival Date: 04/07/2025 Time: 17:13 Bed 6 Private MD: Diagnosis: Essential (primary) hypertension;Paresthesia of skin Presentation: 04/07 17:17 Chief complaint: Patient states: Patient brought in by EMS. C/O dizziness, "feeling ar8 shaky", tingling to hands. Patient states she had checked her BP and noted it was high. Patient denies hx of HTN states that she took Hydroxyzine at \\R\\1615. Symptoms are resolving at this time. Coronavirus screen: At this time, the client does not indicate any symptoms associated with coronavirus-19. Ebola Screen: No symptoms or risks identified at this time. Initial Sepsis Screen: Does the patient meet any 2 criteria? No. Patient's initial sepsis screen is negative. Does the patient have a suspected source of infection? No. Patient's initial sepsis screen is negative. Risk Assessment: Do you want to hurt yourself or someone else? Patient reports no desire to harm self or others. Onset of symptoms was April 07, 2025 at 16:00. 17:17 Method Of Arrival: EMS: [facility] ar8 17:17 Acuity: RINKU 3 ar8 Triage Assessment: 17:22 General: Appears distressed, Behavior is anxious, crying. Pain: Denies pain. Neuro: ar8 Level of Consciousness is awake, alert, obeys commands, Oriented to person, place, time, situation, Clinic Coordinator are equal bilaterally Moves all extremities. Speech is normal, Facial symmetry appears normal, Tingling in left hand. Neuro: Reports dizziness, since 1600. Cardiovascular: Denies chest pain. Respiratory: No deficits noted. Airway is patent Respiratory effort is even, unlabored, Respiratory pattern is regular, symmetrical. Historical: - Allergies: 17:22 Sulfa (Sulfonamide Antibiotics); ar8 - Home Meds: 17:22 Lorazepam Oral [Active]; Hydroxyzine Oral [Active]; ar8 - PMHx: 17:22 Anxiety; Depressive disorder; ar8 - Immunization history:: Adult Immunizations unknown. - Infectious Disease History:: Denies. - Social history:: Smoking status: Patient denies any tobacco usage or history of. Screenin:26 [facility] ED Fall Risk Assessment (Adult) History of falling in the last 3 months, ar8 including since admission No falls in past 3 months (0 pts) Confusion or Disorientation No (0 pts) Intoxicated or Sedated No (0 pts) Impaired Gait No (0 pts) Mobility Assist Device Used No (0 pt) Altered Elimination No (0 pt) Score/Fall Risk Level 0 - 2 = Low Risk. Abuse screen: Denies threats or abuse. Nutritional screening: No deficits noted. Tuberculosis screening: No symptoms or risk factors identified. Assessment: 17:26 Reassessment: see triage assessment. ar8 Vital Signs: 17:17 BP 166 / 84; Pulse 81; Resp 19; Pulse Ox 98% on R/A; Pain 0/10; ar8 17:42 Weight 65.77 kg; Height 5 ft. 2 in. ; ar8 18:15 BP 148 / 87; Pulse 69; Resp 16 S; Temp 97.9(O); Pulse Ox 100% on R/A; Pain 0/10; ar8 17:42 Body Mass Index 26.52 (65.77 kg, 157.48 cm) ar8 17:17 Pain Scale: Adult ar8 18:15 Pain Scale: Adult ar8 ED Course: 17:13 Patient arrived in ED. ms3 17:13 Phillip Mcginnis DO is Attending Physician. ms3 17:17 Neto Blackburn, GEGE is Primary Nurse. ar8 17:22 Triage completed. ar8 17:26 Bed in low position. Call light in reach. Side rails up X2. Provided Education on: plan ar8 of care. 17:26 Client placed on continuous cardiac and pulse oximetry monitoring. NIBP monitoring ar8 applied. 17:26 No provider procedures requiring assistance completed. Maintain EMS IV. Dressing ar8 intact. Good blood return noted. Site clean \\T\\ dry. Gauge \\T\\ site: 22 L hand. Flushed with 10 mL NS. 17:30 Arm band placed on right wrist. ar8 18:15 IV discontinued, intact, bleeding controlled, No redness/swelling at site. Pressure ar8 dressing applied. Administered Medications: 18:22 Not Given (Physician Discretion): ativan1 mg IVP once ar8 18:32 CANCELLED (Duplicate Order): potassium chlorideliquid 40 meq PO once dr5 18:48 Drug: Calcium Carbonate PO 500 mg 2 tablet PO once Route: PO; ar8 18:48 Drug: Potassium PO Effervescent Tablet 50 mEq PO once; dissolve in 4 ounces of water or ar8 juice Route: PO; 18:48 Drug: LORazepam PO 1 mg PO once Route: PO; ar8 Medication: 17:26 VIS not applicable for this client. ar8 Outcome: 18:29 Discharge ordered by . ms3 19:08 Discharged to home ambulatory, with family, ar8 19:08 Condition: stable 19:08 Discharge instructions given to patient, family, Instructed on discharge instructions, follow up and referral plans. Demonstrated understanding of instructions, follow-up care, 19:08 Patient left the ED. ar8 Signatures: Phillip Mcginnis DO DO ms3 Neto Blackburn, RN RN ar8 Mayito Baxter RET[employer] PRO[employer] MERCHANDISER-Cdr5
--- NOTE | 2025-04-07 18:30 | EDPHYS ---
Physician Documentation [facility] Name: Cele Mcfarlane Age: 69 yrs Sex: Female : 1955 Arrival Date: 04/07/2025 Time: 17:13 Bed 6 Private MD: ED Physician Phillip Mcginnis HPI: 04/07 17:14 This 69 yrs old Female presents to ER via Unassigned with complaints of hypertension. [facility] [place] 17:14 69-year-old female with past medical history of anxiety, depression presents to the [facility] emergency department via [facility] for nausea, dizziness, headache, finger tingling that began this afternoon. Patient initially called EMS for hypertension. EMS notes on their arrival patient's blood pressure was 210/1 100s and has improved to 167/83. Patient's heart rate was initially tachycardic with improvement to 80. Patient's blood glucose level 105. Patient states she was seen Friday in the emergency department for similar symptoms. Patient denies chest pain, shortness of breath, pain. Patient notes she is currently been under stress lately. Historical: - Allergies: 17:22 Sulfa (Sulfonamide Antibiotics); ar8 - Home Meds: 17:22 Lorazepam Oral [Active]; Hydroxyzine Oral [Active]; ar8 - PMHx: 17:22 Anxiety; Depressive disorder; ar8 - Immunization history:: Adult Immunizations unknown. - Infectious Disease History:: Denies. - Social history:: Smoking status: Patient denies any tobacco usage or history of. ROS: 17:14 Constitutional: Negative for fever, and chills. Cardiovascular: Negative for chest ms3 pain, and palpitations. Respiratory: Negative for shortness of breath, cough, wheezing, and pleuritic chest pain, Abdomen/GI: Negative for abdominal pain, nausea, vomiting, diarrhea, and constipation, 17:14 Abdomen/GI: Positive for nausea, 17:14 Neuro: Positive for finger tingling, 17:14 Neuro: Positive for headache, Exam: 17:14 Constitutional: This is a well developed, well nourished patient who is awake, alert, ms3 and in no acute distress. Head/Face: Normocephalic, atraumatic. Cardiovascular: Regular rate and rhythm with a normal S1 and S2. No gallops, murmurs, or rubs. Normal PMI, no JVD. No pulse deficits. Respiratory: Lungs have equal breath sounds bilaterally, clear to auscultation and percussion. No rales, rhonchi or wheezes noted. No increased work of breathing, no retractions or nasal flaring. Abdomen/GI: Soft, non-tender, with normal bowel sounds. No distension or tympany. No guarding or rebound. No evidence of tenderness throughout. Skin: Warm, dry with normal turgor. Normal color with no rashes, no lesions, and no evidence of cellulitis. MS/ Extremity: Pulses equal, no cyanosis. Neurovascular intact. Full, normal range of motion. 18:45 ECG was reviewed by the Attending Physician. ms3 Vital Signs: 17:17 BP 166 / 84; Pulse 81; Resp 19; Pulse Ox 98% on R/A; Pain 0/10; ar8 17:42 Weight 65.77 kg; Height 5 ft. 2 in. ; ar8 18:15 BP 148 / 87; Pulse 69; Resp 16 S; Temp 97.9(O); Pulse Ox 100% on R/A; Pain 0/10; ar8 17:42 Body Mass Index 26.52 (65.77 kg, 157.48 cm) ar8 17:17 Pain Scale: Adult ar8 18:15 Pain Scale: Adult ar8 MDM: 17:13 Medical Screening Exam initiated ms3 17:14 Differential Diagnosis anxiety vs GA vs electrolyte abnormality. ms3 18:45 Data reviewed: vital signs, nurses notes, lab test result(s), EKG, and as a result, I ms3 will discharge patient. I considered the following discharge prescriptions or medication management in the emergency department Medications were administered in the Emergency Department. See MAR. Independent interpretation of the following test(s) in the Emergency Department EKG: See my EKG interpretation above. Counseling: I had a detailed discussion with the patient and/or guardian regarding the historical points, exam findings, and any diagnostic results supporting the discharge/admit diagnosis, lab results, the need for outpatient follow up, to return to the emergency department if symptoms worsen or persist or if there are any questions or concerns that arise at home. Special discussion: I discussed with the patient/guardian in detail that at this point there is no indication for admission to the hospital. It is understood, however, that if the symptoms persist or worsen the patient needs to return immediately for re-evaluation. ED course: Discussed labs, EKG with patient. Patient given calcium and potassium in the emergency department. Patient symptoms have resolved since arrival to the emergency department. All questions were answered. Return precautions discussed to include worsening symptoms, or any other concerns.. 04/07 17:14 Order name: Basic Metabolic Panel; Complete Time: 18:09 ms3 04/07 17:14 Order name: CBC with Diff; Complete Time: 18:09 ms3 04/07 17:14 Order name: Troponin HS; Complete Time: 18:09 ms3 04/07 17:14 Order name: EKG; Complete Time: 17:14 ms3 04/07 17:14 Order name: Cardiac monitoring; Complete Time: 18:22 ms3 04/07 17:14 Order name: EKG - Nurse/Tech; Complete Time: 18:22 ms3 04/07 17:14 Order name: IV Saline Lock; Complete Time: 17:28 ms3 04/07 17:14 Order name: Labs collected and sent; Complete Time: 18:22 ms3 04/07 17:14 Order name: O2 Per Protocol; Complete Time: 18:22 ms3 04/07 17:14 Order name: O2 Sat Monitoring; Complete Time: 18:22 ms3 EC:45 Rate is 73 beats/min. Rhythm is regular. QRS [place] is Normal. VT interval is normal. QRS ms3 interval is normal. Clinical impression: NSR w/ Non-specific ST/T Changes. No change from previous ECG on January 22, 2022. Interpreted by me. Reviewed by me. Administered Medications: 18:22 Not Given (Physician Discretion): ativan1 mg IVP once ar8 18:32 CANCELLED (Duplicate Order): potassium chlorideliquid 40 meq PO once dr5 18:48 Drug: Calcium Carbonate PO 500 mg 2 tablet PO once Route: PO; ar8 18:48 Drug: Potassium PO Effervescent Tablet 50 mEq PO once; dissolve in 4 ounces of water or ar8 juice Route: PO; 18:48 Drug: LORazepam PO 1 mg PO once Route: PO; ar8 Disposition Summary: 04/07/25 18:29 Discharge Ordered Notes: Location: Home ms3 Condition: Stable ms3 Diagnosis - Essential (primary) hypertension ms3 - Paresthesia of skin ms3 Followup: ms3 - With: Private Physician - When: Tomorrow - Reason: Recheck today's complaints Discharge Instructions: - Discharge Summary Sheet ms3 - Hypertension, Adult ms3 - Paresthesia, [id number] ms3 - DASH Eating Plan ms3 Forms: - Medication Reconciliation Form ms3 - Antibiotic Education ms3 - Prescription Opioid Use ms3 - Patient Portal Instructions ms3 - Leadership Thank You Letter ms3 Signatures: Dispatcher [employer] EDMichelle Portillo, RN RN ss Phillip Mcginnis, DO DO ms3 Mayito Baxter, WINDOW GLAZIER-C WINDOW GLAZIER-Cdr5 Neto Blackburn RN RN ar8 Corrections: (The following items were deleted from the chart) 17:16 17:14 69-year-old female with past medical history of anxiety, depression presents to ms3 the emergency department via [facility] for nausea, dizziness, headache, finger tingling that began this afternoon. Patient initially called EMS for hypertension. EMS notes on their arrival patient's blood pressure was 210/1 100s and has improved to 167/83. Patient's heart rate was initially tachycardic with improvement to 80. Patient's blood glucose level 105. Patient states she was seen Friday in the emergency department for similar symptoms. Patient denies chest pain, shortness of breath, pain.. ms3 18:32 18:09 Potassium Chloride PO Liquid 40 mEq PO once ordered. ms3 dr5
[2025-04-07] MEDS ORDERED: LORAZEPAM 1 MG TABLET ONE (18:36)
[2025-04-07] MEDS ORDERED: POTASSIUM 25 MEQ EFFERV TAB ONE (18:36)
[2025-04-07] MEDS ORDERED: CALCIUM CARBONATE 500 MG TAB PO ONE (18:45)
[2025-04-07 20:22] VITALS: BP 148/87; TEMP 97.9; O2SAT 100
== END 2025-04-07 19:08 | disposition home or self-care (01) ==
LOC: ER 17:20
DX: I10 Essential (primary) hypertension (principal); R20.2 Paresthesia of skin; F41.9 Anxiety disorder, unspecified
CPT/HCPCS: 36415; 80048; 84484; 85025; 93005; 99284

== ENCOUNTER 2025-04-09 15:40 | Emergency (ER) | payer OTHER ==
[2025-04-09] MEDS ORDERED: METOCLOPRAMIDE 10 MG/2mL INJ ONE (16:24)
[2025-04-09] MEDS ORDERED: DIPHENHYDRAMINE 50 MG/ML VIAL ONE (16:24)
[2025-04-09] MEDS ORDERED: NA CHLORIDE 0.9% 500 ML ONE (16:24)
[2025-04-09 17:13] LABS: Absolute Lymphocytes (CBC) 2.3 K/uL (0.7-4.9); Hematocrit 40.3 % (36.0-45.0); Hemoglobin 13.6 g/dL (12.0-15.0); MCH 28.6 pg (27.0-35.0); MCHC 33.8 g/dL (32.0-36.0); MCV 84.7 fL (80-100); MPV 7.2 fL (7.6-11.3); Nucleated RBC Absolute Count 0.0 (0-0); Nucleated Red Blood Cells % 0.1 % (0-0); RBC Red Blood Cell Count 4.75 M/uL (3.86-4.86); White Blood Count 11.20 thou/uL (4.3-10.9)
[2025-04-09 17:47] LABS: ALT/SGPT 40 U/L (13-56); AST/SGOT 23 U/L (15-37); Albumin 4.0 g/dL (3.4-5.0); Albumin/Globulin Ratio 1.1 (1.1-1.8); Alkaline Phosphatase 91 U/L (45-117); Anion Gap 11.6 mEq/L (5.0-15.0); BUN Blood Urea Nitrogen 13 mg/dL (7-18); Globulin 3.6 g/dL (2.3-3.5); Glucose Level 101 mg/dL (74-106); Magnesium 2.1 mg/dL (1.6-2.4); Potassium 3.6 mEq/L (3.5-5.1); Troponin High Sensitivity 6.3 pg/mL (<58.9)
[2025-04-09 17:56] LABS: Bilirubin Indirect, Calculated 0.2 mg/dL (0.2-0.8)
--- NOTE | 2025-04-09 18:27 | EDPHYS ---
Physician Documentation [facility] Name: Cele Mcfarlane Age: 69 yrs Sex: Female : 1955 Arrival Date: 04/09/2025 Time: 15:40 Bed 5 Private MD: ED Physician Juan Garcia HPI: 04/09 16:05 This 69 yrs old Female presents to ER via Wheelchair with complaints of General cp Weakness, Vomiting, High Blood Pressure. 16:05 The patient presents to the emergency department with nausea, with "dry heaves", cp vomiting, that is intermittent, 4 times today, described as bilious, general weakness. Onset: The symptoms/episode began/occurred this morning. Possible causes: anxiety. Associated signs and symptoms: Pertinent negatives: abdominal pain, diarrhea, fever, GI bleeding, chest pain. Severity of symptoms: in the emergency department the symptoms are unchanged despite home interventions. 16:05 The patient has been recently seen at the [facility] Emergency cp Department, this week, for similar complaints. Patient reports elevated blood pressure today. Historical: - Allergies: 15:52 Sulfa (Sulfonamide Antibiotics); ar8 - PMHx: 15:52 Anxiety; depressive disorder; Hypertensive disorder; ar8 - Immunization history:: Adult Immunizations not up to date. - Infectious Disease History:: Denies. Denies. - Social history:: Smoking status: Smoking status: Patient denies any tobacco usage or history of. ROS: 16:10 Constitutional: Negative for fever, cp 16:10 Eyes: Negative for injury, pain, redness, and discharge, cp 16:10 Cardiovascular: Negative for chest pain, edema, 16:10 Respiratory: Negative for cough, shortness of breath, wheezing, 16:10 Abdomen/GI: Positive for nausea, vomiting, Negative for abdominal pain, diarrhea, constipation, 16:10 Neuro: Positive for weakness, Negative for altered mental status, dizziness, headache, syncope, 16:10 All other systems are negative, Exam: 16:15 Constitutional: The patient appears in no acute distress, alert, awake, cp non-diaphoretic, non-toxic, well developed, well nourished, 16:15 Head/Face: Normocephalic, atraumatic. cp 16:15 Eyes: Periorbital structures: appear normal, Pupils: equal, round, and reactive to light and accomodation, Extraocular movements: intact throughout, Conjunctiva: normal, no exudate, no injection, Sclera: no appreciated abnormality, Lids and lashes: appear normal, bilaterally, 16:15 ENT: External ear(s): are unremarkable, Nose: is normal, Mouth: Lips: moist, Oral mucosa: moist, Posterior pharynx: Airway: no evidence of obstruction, patent, 16:15 Chest/axilla: Inspection: normal, Palpation: is normal, no crepitus, no tenderness, 16:15 Cardiovascular: Rate: normal, Rhythm: regular, Edema: is not appreciated, JVD: is not appreciated, 16:15 Respiratory: the patient does not display signs of respiratory distress, Respirations: normal, no use of accessory muscles, no retractions, labored breathing, is not present, Breath sounds: are clear throughout, no decreased breath sounds, no stridor, no wheezing, 16:15 Abdomen/GI: Inspection: abdomen appears normal, Bowel sounds: active, all quadrants, Palpation: abdomen is soft and non-tender, in all quadrants, 16:15 Back: pain, is absent, ROM is normal, 16:15 Skin: no rash present. 16:15 Neuro: Orientation: to person, place \\T\\ time. Mentation: is normal, Cerebellar function: is grossly normal, Motor: moves all fours, strength is normal, Sensation: is normal, 16:50 ECG was reviewed by the Attending Physician. cp Vital Signs: 15:48 BP 148 / 88; Pulse 81; Resp 18 S; Temp 98.2(O); Pulse Ox 100% on R/A; Weight 65.77 kg; ar8 Height 5 ft. 2 in. ; Pain 0/10; 16:30 BP 144 / 71; Pulse 70; Resp 18; Pulse Ox 94% on R/A; hb 19:34 BP 144 / 73; Pulse 70; Resp 18; Temp 98.6; Pulse Ox 98% on R/A; mf3 15:48 Body Mass Index 26.52 (65.77 kg, 157.48 cm) ar8 15:48 Pain Scale: Adult ar8 MDM: 15:48 Medical Screening Exam initiated sb4 18:25 Data reviewed: vital signs, nurses notes, lab test result(s), EKG, radiologic studies, cp plain films, and as a result, I will discharge patient. 18:25 Differential diagnosis: gastritis, viral gastroenteritis, gastroenteritis, acute CT, cp pancreatitis, anxiety, electrolyte abnormality, cardiac arrythmia. I considered the following discharge prescriptions or medication management in the emergency department Medications were administered in the Emergency Department. See MAR. Counseling: I had a detailed discussion with the patient and/or guardian regarding the historical points, exam findings, and any diagnostic results supporting the discharge/admit diagnosis, the presence of at least one elevated blood pressure reading (>120/80) during this emergency department visit, lab results, radiology results, to return to the emergency department if symptoms worsen or persist or if there are any questions or concerns that arise at home. Response to treatment: the patient's symptoms have markedly improved after treatment, and as a result, I will discharge patient. 04/09 16:01 Order name: Basic Metabolic Panel; Complete Time: 18:03 cp 04/09 18:03 Interpretation: Normal except: GFR 77. cp 04/09 16:01 Order name: CBC with Diff; Complete Time: 17:21 cp 04/09 17:21 Interpretation: Normal except: WBC 11.20; MPV 7.2. cp 04/09 16:01 Order name: LFT's; Complete Time: 18:03 cp 04/09 16:01 Order name: Magnesium; Complete Time: 18:03 cp 04/09 16:01 Order name: Troponin HS; Complete Time: 18:03 cp 04/09 16:01 Order name: XRAY Chest (1 view); Complete Time: 19:16 cp 04/09 16:01 Order name: EKG; Complete Time: 16:01 cp 04/09 16:01 Order name: Cardiac monitoring; Complete Time: 16:52 cp 04/09 16:01 Order name: EKG - Nurse/Tech; Complete Time: 16:52 cp 04/09 16:01 Order name: IV Saline Lock; Complete Time: 16:52 cp 04/09 16:01 Order name: Labs collected and sent; Complete Time: 16:52 cp 04/09 16:01 Order name: O2 Per Protocol; Complete Time: 16:52 cp 04/09 16:01 Order name: O2 Sat Monitoring; Complete Time: 16:52 cp EC:50 Rate is 69 beats/min. Rhythm is regular. CA interval is normal. QRS interval is normal. cp QT interval is normal. T waves are Inverted in leads III, aVR. Interpreted by me. Reviewed by me. Administered Medications: 16:53 Drug: metoCLOPramide IVP 10 mg IVP once; over 1 to 2 minutes Route: IVP; Site: left hb antecubital; 18:52 Follow up: Response: No adverse reaction hb 16:53 Drug: diphenhydrAMINE IVP 12.5 mg IVP once Route: IVP; Site: left antecubital; hb 18:51 Follow up: Response: No adverse reaction hb 16:53 Drug: NS 0.9% IV 500 ml 500 ml IV at 1 bolus once; to be given as a bolus over 60 hb minutes Volume: 500 ml; Route: IV; Rate: 1 bolus; Site: left antecubital; 18:51 Follow up: IV Status: Completed infusion; IV Intake: 500ml hb 19:20 Drug: Ondansetron IVP 4 mg IVP once; over 2 minutes Route: IVP; Site: left antecubital; mf3 19:34 Follow up: Response: No adverse reaction mf3 19:20 Drug: Ativan IVP 1 mg IVP once Route: IVP; Site: left antecubital; mf3 19:33 Follow up: Response: No adverse reaction mf3 Disposition Summary: 04/09/25 18:26 Discharge Ordered Notes: Location: Home cp Problem: new cp Symptoms: have improved cp Condition: Stable cp Diagnosis - Nausea with vomiting, unspecified cp Followup: cp - With: Private Physician - When: 2 - 3 days - Reason: Recheck today's complaints Discharge Instructions: - Discharge Summary Sheet cp - Nausea and Vomiting, Adult cp Forms: - Medication Reconciliation Form cp - Antibiotic Education cp - Prescription Opioid Use cp - Patient Portal Instructions cp - Leadership Thank You Letter cp Prescriptions: - promethazine 25 mg Oral Tablet - take 1 tablet ORAL route every 6 hours As needed; 20 tablet; Refills: 0, cp Product Selection Permitted Signatures: Dispatcher [employer] Boom Nieves PA-C PA-C cp Baxter, Heather, RN RN Skylar Riley PA-C PA-C sb4 Neto Blackburn RN RN ar8 Cathie Leung RN RN mf3
--- NOTE | 2025-04-09 18:27 | ER ---
Nurse's Notes [facility] Name: Cele Mcfarlane Age: 69 yrs Sex: Female : 1955 Arrival Date: 04/09/2025 Time: 15:40 Bed 5 Private MD: Diagnosis: Nausea with vomiting, unspecified Presentation: 04/09 15:48 Chief complaint: Patient states: C/O high BP, N/V, and weakness that began at 0700. ar8 Coronavirus screen: At this time, the client does not indicate any symptoms associated with coronavirus-19. Ebola Screen: No symptoms or risks identified at this time. Initial Sepsis Screen: Does the patient meet any 2 criteria? No. Patient's initial sepsis screen is negative. Does the patient have a suspected source of infection? No. Patient's initial sepsis screen is negative. Risk Assessment: Do you want to hurt yourself or someone else? Patient reports no desire to harm self or others. Onset of symptoms was April 09, 2025 at 07:00. 15:48 Method Of Arrival: Wheelchair ar8 15:48 Acuity: RINKU 3 ar8 Triage Assessment: 15:52 General: Appears uncomfortable, Behavior is cooperative, crying. Pain: Denies pain. GI: ar8 Reports nausea, vomiting. Historical: - Allergies: 15:52 Sulfa (Sulfonamide Antibiotics); ar8 - PMHx: 15:52 Anxiety; depressive disorder; Hypertensive disorder; ar8 - Immunization history:: Adult Immunizations not up to date. - Infectious Disease History:: Denies. Denies. - Social history:: Smoking status: Smoking status: Patient denies any tobacco usage or history of. Screenin:30 [facility] ED Fall Risk Assessment (Adult) History of falling in the last 3 months, hb including since admission No falls in past 3 months (0 pts) Confusion or Disorientation No (0 pts) Intoxicated or Sedated No (0 pts) Impaired Gait No (0 pts) Mobility Assist Device Used No (0 pt) Altered Elimination No (0 pt) Score/Fall Risk Level 0 - 2 = Low Risk. Abuse screen: Denies threats or abuse. Denies injuries from another. Nutritional screening: No deficits noted. Tuberculosis screening: No symptoms or risk factors identified. Assessment: 16:30 General: Appears in no apparent distress. uncomfortable, well groomed, well developed, hb Behavior is calm, cooperative, appropriate for age. Pain: Denies pain. Neuro: Level of Consciousness is awake, alert, obeys commands, Oriented to person, place, time, situation, Appropriate for age. Neuro: Reports headache. Cardiovascular: Patient's skin is warm and dry. Respiratory: Airway is patent Respiratory effort is even, unlabored, Respiratory pattern is regular, symmetrical. GI: Abdomen is non-distended, Reports nausea, vomiting. : No signs and/or symptoms were reported regarding the genitourinary system. EENT: No signs and/or symptoms were reported regarding the EENT system. Derm: No signs and/or symptoms reported regarding the dermatologic system. Musculoskeletal: No signs and/or symptoms reported regarding the musculoskeletal system. 18:07 Reassessment: Patient appears in no apparent distress at this time. Patient and/or hb family updated on plan of care and expected duration. Pain level reassessed. Patient is alert, oriented x 3, equal unlabored respirations, skin warm/dry/pink. Vital Signs: 15:48 BP 148 / 88; Pulse 81; Resp 18 S; Temp 98.2(O); Pulse Ox 100% on R/A; Weight 65.77 kg; ar8 Height 5 ft. 2 in. ; Pain 0/10; 16:30 BP 144 / 71; Pulse 70; Resp 18; Pulse Ox 94% on R/A; hb 19:34 BP 144 / 73; Pulse 70; Resp 18; Temp 98.6; Pulse Ox 98% on R/A; mf3 15:48 Body Mass Index 26.52 (65.77 kg, 157.48 cm) ar8 15:48 Pain Scale: Adult ar8 ED Course: 15:43 Patient arrived in ED. im 15:44 Skylar Phipps PA-C is PHCP. sb4 15:44 Juan Garcia MD is Attending Physician. sb4 15:52 Triage completed. ar8 15:52 Arm band placed on right wrist. ar8 15:54 Boom Bennett PA is PHCP. cp 15:54 Juan Garcia MD is Attending Physician. cp 16:30 Patient has correct armband on for positive identification. Bed in low position. Call hb light in reach. Provided Education on: labs, test, call light use . 16:30 No provider procedures requiring assistance completed. Inserted saline lock: 20 gauge hb in left antecubital area, using aseptic technique. Blood collected. Flushed with 10 mL NS. 18:31 XRAY Chest (1 view) In Process Unspecified. EDMS 19:36 IV discontinued, intact, bleeding controlled, No redness/swelling at site. Pressure mf3 dressing applied. Administered Medications: 16:53 Drug: metoCLOPramide IVP 10 mg IVP once; over 1 to 2 minutes Route: IVP; Site: left hb antecubital; 18:52 Follow up: Response: No adverse reaction hb 16:53 Drug: diphenhydrAMINE IVP 12.5 mg IVP once Route: IVP; Site: left antecubital; hb 18:51 Follow up: Response: No adverse reaction hb 16:53 Drug: NS 0.9% IV 500 ml 500 ml IV at 1 bolus once; to be given as a bolus over 60 hb minutes Volume: 500 ml; Route: IV; Rate: 1 bolus; Site: left antecubital; 18:51 Follow up: IV Status: Completed infusion; IV Intake: 500ml hb 19:20 Drug: Ondansetron IVP 4 mg IVP once; over 2 minutes Route: IVP; Site: left antecubital; mf3 19:34 Follow up: Response: No adverse reaction mf3 19:20 Drug: Ativan IVP 1 mg IVP once Route: IVP; Site: left antecubital; mf3 19:33 Follow up: Response: No adverse reaction mf3 Medication: 16:30 VIS not applicable for this client. hb Intake: 18:51 IV: 500ml; Total: 500ml. hb Outcome: 18:26 Discharge ordered by . cp 19:36 Discharged to home ambulatory, with family, mf3 19:36 Condition: stable 19:36 Discharge instructions given to patient, family, Instructed on discharge instructions, follow up and referral plans. medication usage, Demonstrated understanding of instructions, follow-up care, medications, Prescriptions given X 1, 19:40 Patient left the ED. mf3 Signatures: Dispatcher [employer] EDPA Boom Bennett PA-C PA-C cp Baxter, Heather, RN RN Skylar Phipps PA-C PA-C sb4 Patrizia Donahue Andrea RN RN ar8 Cathie Leung, RN RN mf3
--- NOTE | 2025-04-09 18:57 | RAD REPORT ---
Procedure: Chest Single View HISTORY: Hypertension. Vomiting. COMPARISON: 2020 FINDINGS: The lungs appear clear of acute infiltrate. No significant pleural effusion noted. The heart is normal size. IMPRESSION: No acute abnormality is displayed.
[2025-04-09] MEDS ORDERED: LORazepam 2 MG/ML VIAL ONE (19:08)
[2025-04-09] MEDS ORDERED: ONDANSETRON 4 MG/2 ML VIAL ONE (19:09)
[2025-04-10 03:20] VITALS: BP 144/73; TEMP 98.6; O2SAT 98
== END 2025-04-09 19:40 | disposition home or self-care (01) ==
LOC: ER 15:40
DX: R11.2 Nausea with vomiting, unspecified (principal); R53.1 Weakness; I10 Essential (primary) hypertension
CPT/HCPCS: 96361; 93005; 85025; 80048; 36415; 83735; 80076; 84484; 71045; 96375; 96374; 99284; J2765; J1200; J2405; J7040

== ENCOUNTER 2025-06-17 14:09 | Emergency (ER) | payer OTHER ==
[2025-06-17 15:25] LABS: Absolute Lymphocytes (CBC) 2.6 K/uL (0.7-4.9); Hematocrit 40.6 % (36.0-45.0); Hemoglobin 13.7 g/dL (12.0-15.0); MCH 28.7 pg (27.0-35.0); MCHC 33.6 g/dL (32.0-36.0); MCV 85.3 fL (80-100); MPV 7.2 fL (7.6-11.3); Nucleated RBC Absolute Count 0.0 (0-0); Nucleated Red Blood Cells % 0.1 % (0-0); RBC Red Blood Cell Count 4.76 M/uL (3.86-4.86); White Blood Count 9.80 thou/uL (4.3-10.9)
[2025-06-17 15:42] LABS: ALT/SGPT 104 U/L (13-56); AST/SGOT 45 U/L (15-37); Albumin 4.1 g/dL (3.4-5.0); Albumin/Globulin Ratio 1.0 (1.1-1.8); Alkaline Phosphatase 109 U/L (45-117); Anion Gap 10.7 mEq/L (5.0-15.0); BUN Blood Urea Nitrogen 16 mg/dL (7-18); Globulin 4.0 g/dL (2.3-3.5); Glucose Level 110 mg/dL (74-106); Lipase 36 U/L (13-75); Magnesium 2.3 mg/dL (1.6-2.4); Potassium 3.7 mEq/L (3.5-5.1); Troponin High Sensitivity 4.2 pg/mL (<58.9)
[2025-06-17 15:47] LABS: Bilirubin Indirect, Calculated 0.1 mg/dL (0.2-0.8)
[2025-06-17] MEDS ORDERED: FAMOTIDINE 20 MG/2 ML VIAL IV ONE (16:20)
[2025-06-17] MEDS ORDERED: ONDANSETRON 4 MG/2 ML VIAL ONE (16:20)
--- NOTE | 2025-06-17 16:48 | RAD REPORT ---
EXAMINATION: Head Brain Wo Cont CLINICAL INDICATION: Female, 69 years old.DIZZINESS TECHNIQUE: Axial CT images from the skull base to the vertex without intravenous contrast. Coronal an d sagittal reformatted images were created from the data set. One or more of the following dose reduction techniques were used: Automated exposure control, adjustment of the mA and/or kV according to patient size, and/or iterative reconstruction. Unless otherwise specified, incidental findings do not require dedicated imaging follow-up. [id number]. COMPARISON: No prior exams FINDINGS: INTRACRANIAL: No acute intracranial hemorrhage. No acute large vascular territory infarct. No hydro cephalus. No mass effect or midline shift. No significant white matter disease. VASCULATURE: No visualized abnormalities in the arteries or dural venous sinuses. SCALP/SKULL: No calvarial fracture identified. No acute soft tissue abnormality. SINUSES: The visualized paranasal sinuses are mostly clear. No significant mastoid fluid. IMPRESSION: No acute intracranial abnormality.
--- NOTE | 2025-06-17 17:10 | RAD REPORT ---
EXAMINATION: Abdomen Pelvis W Contrast CLINICAL INDICATION: Female, 69 years old.nausea;Abd pain TECHNIQUE: CT abdomen and pelvis was performed, after the administration of IV contrast, as per [facility] protocol. Axial, sagittal and coronal reconstructions were obtained. One or more of the following dose reduction techniques were used: Automated exposure control, adjustment of the mA and/o r kV according to patient size, and/or iterative reconstruction. Unless otherwise specified, incidental findings do not require dedicated imaging follow-up. [id number]. COMPARISON: 04/22/2025 FINDINGS: LOWER CHEST: No acute process identified. No significant pericardial effusion. Small hiatal hernia. UPPER GI: No significant abnormality. LIVER: No significant focal abnormality. GALLBLADDER/BILE DUCTS: No biliary ductal dilatation.? PANCREAS: No mass, ductal dilation, or kelvin-pancreatic fluid. SPLEEN: Unremarkable. ADRENALS: No adrenal masses. KIDNEYS AND URETERS: No hydronephrosis. Benign left renal sinus cyst. Other too small to characterize renal lesions are likely benign.. No renal calculi. No ureteral calculi. ABDOMINAL AORTA AND OTHER VESSELS: Normal caliber aorta and IVC. PERITONEUM: No abnormal free fluid. No free air. LYMPH NODES: No pathologic lymphadenopathy. ABDOMINAL WALL: Small fat containing umbilical hernia. SMALL BOWEL/COLON: Small bowel has normal course and caliber. No colonic wall thickening or pericolon ic inflammatory changes. Normal appendix. URINARY BLADDER: Underdistended but grossly unremarkable. REPRODUCTIVE ORGANS: No pathologic process. MUSCULOSKELETAL: No acute or suspicious osseous abnormality. ADDITIONAL FINDINGS: None. IMPRESSION: No acute findings within the abdomen or pelvis. No appendicitis.
--- NOTE | 2025-06-17 18:19 | EDPHYS ---
Physician Documentation [facility] Name: Cele Mcfarlane Age: 69 yrs Sex: Female : 1955 Arrival Date: 06/17/2025 Time: 14:09 Bed 17 Private MD: ED Physician Juan Garcia HPI: 06/17 14:30 This 69 yrs old Female presents to ER via Unassigned with complaints of Accidental cp Overdose - miratazapine, Abdominal Pain, Flank Pain. 14:31 The patient presents to the emergency department with a possible overdose, recent cp increase in Mirtazapine medication from 30 mg daily to 45 mg daily. Associated signs and symptoms: Pertinent positives: dizziness, nausea. The patient presents with abdominal pain in the upper abdomen, nausea and loose stools. Historical: - Allergies: 14:31 Sulfa (Sulfonamide Antibiotics); me1 - PMHx: 14:31 Anxiety; depressive disorder; Hypertensive disorder; me1 - PSHx: 14:31 trimallear fracture repair (Unknown); me1 - Immunization history:: Adult Immunizations up to date. - Infectious Disease History:: Denies. - Social history:: Smoking status: Patient denies any tobacco usage or history of. ROS: 14:35 Constitutional: Negative for body aches, chills, fever, poor PO intake, cp 14:35 Eyes: Negative for injury, pain, redness, and discharge, cp 14:35 ENT: Negative for drainage from ear(s), ear pain, sore throat, difficulty swallowing, difficulty handling secretions, 14:35 Cardiovascular: Negative for chest pain, palpitations, 14:35 Respiratory: Negative for cough, shortness of breath, wheezing, 14:35 Abdomen/GI: Positive for abdominal pain, nausea, loose stools, Negative for vomiting, constipation, 14:35 : Negative for urinary symptoms, 14:35 Neuro: Positive for dizziness, Negative for altered mental status, syncope, 14:35 All other systems are negative, Exam: 14:40 Constitutional: The patient appears in no acute distress, alert, awake, cp non-diaphoretic, non-toxic, well developed, well nourished, 14:40 Head/Face: Normocephalic, atraumatic. cp 14:40 Eyes: Periorbital structures: appear normal, Conjunctiva: normal, no exudate, no injection, Sclera: no appreciated abnormality, Lids and lashes: appear normal, bilaterally, 14:40 ENT: External ear(s): are unremarkable, Nose: is normal, Mouth: Lips: moist, Oral mucosa: moist, Posterior pharynx: Airway: no evidence of obstruction, patent, erythema, is not appreciated, exudate, is not appreciated, 14:40 Neck: ROM/movement: is normal, is supple, without pain, no range of motions limitations, 14:40 Chest/axilla: Inspection: normal, 14:40 Cardiovascular: Rate: normal, Rhythm: regular, Edema: is not appreciated, JVD: is not appreciated, 14:40 Respiratory: the patient does not display signs of respiratory distress, Respirations: normal, no use of accessory muscles, no retractions, labored breathing, is not present, Breath sounds: are clear throughout, no decreased breath sounds, no stridor, no wheezing, 14:40 Abdomen/GI: Inspection: abdomen appears normal, Bowel sounds: active, all quadrants, Palpation: soft, in all quadrants, mild abdominal tenderness, in the right upper quadrant and left upper quadrant, rebound tenderness, is not appreciated, involuntary guarding, is not appreciated, 14:40 Back: CVA tenderness, is absent, 14:40 Skin: cellulitis, is not appreciated, no rash present. 14:40 Neuro: Orientation: to person, place \T\ time. Mentation: is normal, Cerebellar function: is grossly normal, Motor: moves all fours, strength is normal, Sensation: is normal, 15:15 ECG was reviewed by the Attending Physician. cp Vital Signs: 14:25 BP 161 / 89; Pulse 70; Resp 18; Temp 98.4; Pulse Ox 99% ; Weight 64.86 kg; Height 5 ft. me1 2 in. ; Pain 4/10; 16:30 BP 121 / 87; Pulse 68; Resp 18; Pulse Ox 100% on R/A; kj2 17:30 BP 132 / 76; Pulse 94; Resp 18; Pulse Ox 100% ; kj2 18:26 BP 134 / 74; Pulse 77; Resp 18; Temp 98; Pulse Ox 100% ; kj2 14:25 Body Mass Index 26.15 (64.86 kg, 157.48 cm) ut1 14:25 Pain Scale: Adult me1 MDM: 14:24 Medical Screening Exam initiated 15:00 Differential diagnosis: cholecystitis, Cholelithiasis, gastritis, Pyelonephritis, cp Ureterolithiasis, urinary tract infection, dehydration, medication reaction, anxiety. 18:18 Data reviewed: vital signs, nurses notes, lab test result(s), EKG, radiologic studies, cp CT scan, and as a result, I will discharge patient. 18:18 I considered the following discharge prescriptions or medication management in the emergency department Medications were administered in the Emergency Department. See MAR. Independent interpretation of the following test(s) in the Emergency Department EKG: See my EKG interpretation above. Care significantly affected by the following chronic conditions: Hypertension. Counseling: I had a detailed discussion with the patient and/or guardian regarding the historical points, exam findings, and any diagnostic results supporting the discharge/admit diagnosis, lab results, radiology results, the need for outpatient follow up, a family practitioner, to return to the emergency department if symptoms worsen or persist or if there are any questions or concerns that arise at home. Response to treatment: the patient's symptoms have mildly improved after treatment, and as a result, I will discharge patient. 06/17 14:33 Order name: Basic Metabolic Panel; Complete Time: 15:51 06/17 15:52 Interpretation: Normal except: GLUC 110; GFR 67. 06/17 14:33 Order name: CBC with Diff; Complete Time: 15:51 06/17 15:52 Interpretation: Normal except: MPV 7.2. 06/17 14:33 Order name: LFT's; Complete Time: 15:51 06/17 15:52 Interpretation: Normal except: AST 45; ALT 104; IBILI, CALC 0.1; GLOB 4.0; A/G 1.0. 06/17 14:33 Order name: Magnesium; Complete Time: 15:51 06/17 14:33 Order name: Troponin HS; Complete Time: 15:51 06/17 14:33 Order name: Lipase; Complete Time: 15:51 06/17 15:53 Order name: CT Abd/Pelvis - IV Contrast Only; Complete Time: 18:06 06/17 18:07 Interpretation: Report reviewed. 06/17 16:10 Order name: CT Head Brain wo Cont; Complete Time: 18:06 06/17 18:07 Interpretation: Report reviewed. 06/17 14:33 Order name: Cardiac monitoring; Complete Time: 16:09 cp 06/17 14:33 Order name: EKG - Nurse/Tech; Complete Time: 15:13 cp 06/17 14:33 Order name: IV Saline Lock; Complete Time: 15:13 cp 06/17 14:33 Order name: Labs collected and sent; Complete Time: 15:13 cp 06/17 14:33 Order name: O2 Per Protocol; Complete Time: 16:09 cp 06/17 14:33 Order name: O2 Sat Monitoring; Complete Time: 16:09 EC:15 Rate is 72 beats/min. Rhythm is irregular. ME interval is normal. QRS interval is cp normal. QT interval is normal. T waves are Inverted in lead aVR. Interpreted by me. Reviewed by me. Administered Medications: 16:50 Drug: Ondansetron IVP 4 mg IVP once; over 2 minutes Route: IVP; Site: left antecubital; kj2 18:13 Follow up: Response: No adverse reaction kj2 16:50 Drug: Famotidine IVP 20 mg IVP once; dilute with 10 mL 0.9% NaCl; give over 2 minutes kj2 Route: IVP; Site: left antecubital; 18:13 Follow up: Response: No adverse reaction kj2 Disposition Summary: 06/17/25 18:18 Discharge Ordered Notes: Location: Home cp Problem: new cp Symptoms: have improved cp Condition: Stable cp Diagnosis - Adverse effect of tetracyclic antidepressants, initial encounter cp - Abdominal pain, unspecified cp - Abnormal results of liver function studies cp - Nausea cp - Dizziness and giddiness cp Followup: cp - With: Private Physician - When: 2 - 3 days - Reason: Recheck today's complaints Discharge Instructions: - Discharge Summary Sheet cp - Abdominal Pain, Adult cp - Dizziness cp - Nausea, Adult cp Forms: - Medication Reconciliation Form cp - Antibiotic Education cp - Prescription Opioid Use cp - Patient Portal Instructions cp - Leadership Thank You Letter cp Prescriptions: - Zofran 4 mg Oral Tablet - take 1 tablet ORAL route every 12 hours As needed; 20 tablet; Refills: 0, cp Product Selection Permitted Signatures: Dispatcher [employer] Boom Nieves PA-C PA-C cp Eddleman, Michelle, RN RN me1 Essie Brower RN RN kj2 Corrections: (The following items were deleted from the chart) 06/18 18:23 06/17 14:35 Abdomen/GI: Positive for abdominal pain, nausea, loose stools, Negative for cp active vomiting, cp
--- NOTE | 2025-06-17 18:19 | ER ---
Nurse's Notes [facility] Name: Cele Mcfarlane Age: 69 yrs Sex: Female : 1955 Arrival Date: 06/17/2025 Time: 14:09 Bed 17 Private MD: Diagnosis: Adverse effect of tetracyclic antidepressants, initial encounter;Abdominal pain, unspecified;Abnormal results of liver function studies;Nausea;Dizziness and giddiness Presentation: 06/17 14:25 Chief complaint: Patient states: has taken mirtazapine 30 mg once a day for years. me1 Recently tried to increase it to 45mg per Dr order, started that night before last. yesterday took 30 mg about 2 pm and intended to take 15 mg at bedtime but started feeling very dizzy so she didn't take the night dose of 15 mg. Today she has had nausea and about 4 bowel movements that were formed. Coronavirus screen: At this time, the client does not indicate any symptoms associated with coronavirus-19. Ebola Screen: No symptoms or risks identified at this time. Initial Sepsis Screen: Does the patient meet any 2 criteria? No. Patient's initial sepsis screen is negative. Does the patient have a suspected source of infection? No. Patient's initial sepsis screen is negative. Risk Assessment: Do you want to hurt yourself or someone else? Patient reports no desire to harm self or others. Onset of symptoms was June 16, 2025. 14:25 Method Of Arrival: Ambulatory [facility] [place] 14:25 Acuity: RINKU 3 me1 Historical: - Allergies: 14:31 Sulfa (Sulfonamide Antibiotics); me1 - PMHx: 14:31 Anxiety; depressive disorder; Hypertensive disorder; me1 - PSHx: 14:31 trimallear fracture repair (Unknown); me1 - Immunization history:: Adult Immunizations up to date. - Infectious Disease History:: Denies. - Social history:: Smoking status: Patient denies any tobacco usage or history of. Screenin:30 [facility] ED Fall Risk Assessment (Adult) History of falling in the last 3 months, kj2 including since admission No falls in past 3 months (0 pts). [facility] ED Fall Risk Assessment (Adult) Confusion or Disorientation No (0 pts) Intoxicated or Sedated No (0 pts) Impaired Gait No (0 pts) Mobility Assist Device Used No (0 pt) Altered Elimination No (0 pt) Score/Fall Risk Level 0 - 2 = Low Risk Maintained a safe environment, Hourly rounding (assess needs \\T\\ fall precautionary measures) done. Abuse screen: Denies threats or abuse. Denies injuries from another. Nutritional screening: No deficits noted. Tuberculosis screening: No symptoms or risk factors identified. Assessment: 16:30 General: Appears in no apparent distress. Behavior is cooperative. Pain: Complains of kj2 pain in abdomen Pain currently is 4 out of 10 on a pain scale. Neuro: Level of Consciousness is awake, alert, obeys commands, Oriented to person, place, time, situation. Cardiovascular: Patient's skin is warm and dry. Respiratory: Airway is patent Respiratory effort is even, unlabored. GI: Reports lower abdominal pain, upper abdominal pain. : No signs and/or symptoms were reported regarding the genitourinary system. 17:30 Reassessment: Patient appears in no apparent distress at this time. Patient and/or kj2 family updated on plan of care and expected duration. Pain level reassessed. Patient is alert, oriented x 3, equal unlabored respirations, skin warm/dry/pink. 18:25 Reassessment: Patient appears in no apparent distress at this time. Patient and/or kj2 family updated on plan of care and expected duration. Pain level reassessed. Patient is alert, oriented x 3, equal unlabored respirations, skin warm/dry/pink. Overdose: 16:30 Virgie Suicide Severity Screening: "In the past month, have you wished you were kj2 or wished you could go to sleep and not wake up?" Patient responds "no." "In the past month, have you actually had any thoughts of killing yourself?" Patient responds "no." "In your lifetime, have you ever done anything, started to do anything, or prepared to do anything to end your life?" Patient responds "no.". 16:30 Virgie Suicide Severity Screening: "In the past month, have you wished you were kj2 or wished you could go to sleep and not wake up?" Patient responds "no." "In the past month, have you actually had any thoughts of killing yourself?" Patient responds "no.". 18:11 Virgie Suicide Severity Screening: "In the past month, have you wished you were kj2 or wished you could go to sleep and not wake up?" Patient responds "no." "In the past month, have you actually had any thoughts of killing yourself?" Patient responds "no.". 18:12 Virgie Suicide Severity Screening: "In the past month, have you wished you were kj2 or wished you could go to sleep and not wake up?" Patient responds "no." "In the past month, have you actually had any thoughts of killing yourself?" Patient responds "no.". Vital Signs: 14:25 BP 161 / 89; Pulse 70; Resp 18; Temp 98.4; Pulse Ox 99% ; Weight 64.86 kg; Height 5 ft. me1 2 in. ; Pain 4/10; 16:30 BP 121 / 87; Pulse 68; Resp 18; Pulse Ox 100% on R/A; kj2 17:30 BP 132 / 76; Pulse 94; Resp 18; Pulse Ox 100% ; kj2 18:26 BP 134 / 74; Pulse 77; Resp 18; Temp 98; Pulse Ox 100% ; kj2 14:25 Body Mass Index 26.15 (64.86 kg, 157.48 cm) me1 14:25 Pain Scale: Adult me1 ED Course: 14:12 Patient arrived in ED. im 14:15 Boom Bennett PA-C is PHCP. cp 14:15 Juan Garcia MD is Attending Physician. cp 14:31 Triage completed. me1 14:31 Arm band placed on Patient placed in waiting room. me1 15:13 Lipase Sent. bc6 15:13 Basic Metabolic Panel Sent. bc6 15:13 CBC with Diff Sent. bc6 15:13 LFT's Sent. bc6 15:13 Magnesium Sent. bc6 15:13 Troponin HS Sent. bc6 15:14 Initial lab(s) drawn, by me, sent to lab. EKG done, by ED staff, reviewed by Boom hills PA-C. Inserted saline lock: 20 gauge in left antecubital area, using aseptic technique. Blood collected. Flushed with 10 mL NS. 16:13 Essie Brower, RN is Primary Nurse. kj2 16:30 Patient has correct armband on for positive identification. Bed in low position. Call kj2 light in reach. Provided Education on: call light. 16:39 CT Abd/Pelvis - IV Contrast Only In Process Unspecified. EDMS 16:39 CT Head Brain wo Cont In Process Unspecified. EDMS 18:27 No provider procedures requiring assistance completed. IV discontinued, intact, kj2 bleeding controlled, No redness/swelling at site. Pressure dressing applied. Administered Medications: 16:50 Drug: Ondansetron IVP 4 mg IVP once; over 2 minutes Route: IVP; Site: left antecubital; kj2 18:13 Follow up: Response: No adverse reaction kj2 16:50 Drug: Famotidine IVP 20 mg IVP once; dilute with 10 mL 0.9% NaCl; give over 2 minutes kj2 Route: IVP; Site: left antecubital; 18:13 Follow up: Response: No adverse reaction kj2 Medication: 18:12 VIS not applicable for this client. kj2 Outcome: 18:18 Discharge ordered by . jerry 18:28 Discharged to home ambulatory, kj2 18:28 Condition: stable 18:28 Discharge instructions given to patient, family, Instructed on discharge instructions, follow up and referral plans. Demonstrated understanding of instructions, follow-up care, 18:40 Patient left the ED. kj2 Signatures: Dispatcher [employer] EDMS Boom Bennett PA-C PA-C cp [place], Breana bc6 Patrizia Donahue Michelle, RN RN me1 Essie Brower, GEGE RN kj2
[2025-06-18 01:36] VITALS: O2SAT 100
[2025-06-18 01:47] VITALS: BP 134/74; TEMP 98
== END 2025-06-17 18:40 | disposition home or self-care (01) ==
LOC: ER 14:09
DX: R11.0 Nausea (principal); T43.025A Adverse effect of tetracyclic antidepressants, initial encounter; R94.5 Abnormal results of liver function studies; R42 Dizziness and giddiness; R10.10 Upper abdominal pain, unspecified; I10 Essential (primary) hypertension
CPT/HCPCS: 93005; 85025; 80048; 36415; 83735; 80076; 84484; 83690; 70450; 74177; 96375; 96374; 99284; Q9967; J2405